=== PATIENT | female | born 1965 | race Hispanic/Latino ===

== ENCOUNTER 2017-02-16 11:38 | Emergency (ER) | payer SELFPAY ==
[2017-02-16 13:03] LABS: Basophils % (Auto) 0.5 % (0.0-1.8); Eosinophils % (Auto) 2.9 % (0.0-4.3); Hematocrit 35.3 % (30.3-42.9); Hemoglobin 10.9 gm/dl (10.1-14.3); Mean Corpuscular HGB Conc 31 % (30-34); Mean Corpuscular Hemoglobin 22 pg (28-32); Mean Corpuscular Volume 71 fl (79-97); Platelet Count 474 K/mm3 (140-440); White Blood Count 16.2 K/mm3 (4.5-11.0)
[2017-02-16 13:23] LABS: Anion Gap 19 mmol/L; BUN/Creatinine Ratio 15.71; Blood Urea Nitrogen 11 mg/dL (7-17); Calcium 8.9 mg/dL (8.4-10.2); Carbon Dioxide 22 mmol/L (22-30); Chloride 101.6 mmol/L (98-107); Glucose 100 mg/dL (65-100); Sodium 139 mmol/L (137-145)
[2017-02-16 13:28] LABS: Bacteria,Urine 1+ /HPF (Negative); Bilirubin,Urine NEG (Negative); Blood,Urine NEG (Negative); Ketones,Urine NEG (Negative); Leukocyte Esterase,Urine LG (Negative); Mucus,Urine FEW /HPF; Nitrite,Urine NEG (Negative); Protein,Urine <15 mg/dL mg/dL (Negative); Urobilinogen,Urine < 2.0 mg/dL (<2.0)
--- NOTE | 2017-02-16 14:52 | Emergency Department Report ---
ED Female HPI - General Chief complaint: Urogenital-Female Stated complaint: MENSTRUAL PROBLEMS Time Seen by Provider: 02/16/17 14:21 Source: patient Mode of arrival: Ambulatory Limitations: No Limitations - Related Data Previous Rx's Medication Instructions Recorded Last Taken Type HYDROcodone/APAP 10-325 [[place] 1 each PO Q6HR PRN #20 tablet 12/16/15 Unknown Rx 10-325 mg TAB] Allergies Allergy/AdvReac Type Severity Reaction Status Date / Time No Known Allergies Allergy Verified 02/16/17 12:39 ED Review of Systems ROS: Stated complaint: MENSTRUAL PROBLEMS Other details as noted in HPI ED Past Medical Hx - Past Medical History Hx Arthritis: Yes (PSORIATIC ARTHRITIS) Hx Asthma: Yes Additional medical history: PSORIASIS. - Surgical History Additional Surgical History: LEFT KNEE ARTHROSCOPY - Social History Smoking Status: Never Smoker Substance Use Type: Prescribed - Medications Home Medications: Home Medications Medication Instructions Recorded Confirmed Last Taken Type HYDROcodone/APAP 10-325 [[place] 1 each PO Q6HR PRN #20 tablet 12/16/15 Unknown Rx 10-325 mg TAB] ED Physical Exam - General Limitations: No Limitations ED Course Vital Signs 02/16/17 12:42 Temperature 98.0 F Pulse Rate 84 Respiratory 19 Rate Blood Pressure 139/94 O2 Sat by Pulse 100 Oximetry ED Medical Decision Making - Lab Data Result diagrams: 02/16/17 12:48 02/16/17 12:48 Critical care attestation.: If time is entered above; I have spent that time in minutes in the direct care of this critically ill patient, excluding procedure time. ED Disposition Condition: Stable Referrals: PRIMARY CARE, [Primary Care Provider] - 3-5 Days
[2017-02-16] MEDS ORDERED: ROCEPHIN IM ONE (16:07)
[2017-02-16] MEDS ORDERED: XYLOCAINE 1% MPF 5 mL INFILTRATI ONE (16:07)
[2017-02-16] MEDS ORDERED: ZITHROMAX PO ONE (16:07)
[2017-02-16] MEDS ORDERED: NORCO 5/325 PO ONE (16:20)
--- NOTE | 2017-02-16 16:24 | Emergency Department Report ---
Entered by JAMESON VEGA, acting as scribe for TEGAN DINH PA. ED Female HPI - General Chief complaint: Urogenital-Female Stated complaint: MENSTRUAL PROBLEMS Source: patient Mode of arrival: Ambulatory Limitations: No Limitations - History of Present Illness Initial comments: 51 y/o female with a PMHx of asthma, psoriatic arthritis, and psoriasis presents to the ED c/o a vaginal discharge and pelvic pain that began 2 weeks ago. Rates pelvic pain a 10/10 in severity and she describes the pain as pressure in quality. Patient states that she came on her period on 01/07/2017 , and on the last day she inserted a tampon. Patient states that she continued bleeding and left the tampon inside for 12 days straight, because she states she "couldn't get it out." Notes she removed the tampon 1.5 weeks ago, and bled for 2 days. Reports it "feels like my insides are coming out." Associated symptoms include purulent vaginal discharge with a foul odor and vaginal itching , but she denies fever, chills, vaginal bleeding, nausea, vomiting, and diarrhea. Notes applying Monistat for vaginal discharge and vaginal itching with some relief, but she states her symptoms returned. Denies having a period yet this month. NKDA. PALACIOS Complaint: vaginal discharge (purulent vaginal discharge with a foul odor), pelvic pain Onset/Timin -: week(s) Location: suprapubic (vaginal area) Radiation: non-radiating Severity: moderate Severity scale (0 -10): 10 Quality: other (pressure) Consistency: constant Improves with: none Worsens with: none Are you Now?: No Last Menstrual Period: 01/07/17 EDC: 10/14/17 Associated Symptoms: denies other symptoms, vaginal discharge (purulent vaginal discharge with a foul odor), other (vaginal itching and pelvic pain, but denies chest pain). denies: vaginal bleeding, abdominal pain, nausea/vomiting, fever/ chills, headaches, dysuria, hematuria, rash, shortness of breath - Related Data Previous Rx's Medication Instructions Recorded Last Taken Type HYDROcodone/APAP 10-325 [[place] 1 each PO Q6HR PRN #20 tablet 12/16/15 Unknown Rx 10-325 mg TAB] metroNIDAZOLE [Flagyl] 500 mg PO Q12HR #14 tab 02/16/17 Unknown Rx Allergies Allergy/AdvReac Type Severity Reaction Status Date / Time No Known Allergies Allergy Verified 02/16/17 12:39 ED Review of Systems Comment: All other systems reviewed and negative Constitutional: no symptoms reported. denies: chills, fever Respiratory: no symptoms reported. denies: cough, shortness of breath Cardiovascular: as per HPI. denies: chest pain Endocrine: no symptoms reported Gastrointestinal: as per HPI. denies: abdominal pain, nausea, vomiting, diarrhea Genitourinary: as per HPI, discharge (pururlent vaginal discharge with a foul odor), other (vaginal itching and pelvic pain, but denies vaginal bleeding). denies: urgency, dysuria, frequency, hematuria Musculoskeletal: as per HPI Skin: as per HPI. denies: rash Neurological: as per HPI. denies: headache ED Past Medical Hx - Past Medical History Hx Arthritis: Yes (PSORIATIC ARTHRITIS) Hx Asthma: Yes Additional medical history: PSORIASIS. - Surgical History Additional Surgical History: LEFT KNEE ARTHROSCOPY - Social History Smoking Status: Never Smoker Substance Use Type: Prescribed - Medications Home Medications: Home Medications Medication Instructions Recorded Confirmed Last Taken Type HYDROcodone/APAP 10-325 [[place] 1 each PO Q6HR PRN #20 tablet 12/16/15 Unknown Rx 10-325 mg TAB] metroNIDAZOLE [Flagyl] 500 mg PO Q12HR #14 tab 02/16/17 Unknown Rx ED Physical Exam - General Limitations: No Limitations General appearance: alert, in no apparent distress - Head Head exam: Present: atraumatic, normocephalic - Eye Eye exam: Present: normal appearance, EOMI Pupils: Present: normal accommodation - ENT ENT exam: Present: normal exam, mucous membranes moist - Neck Neck exam: Present: normal inspection, full ROM. Absent: lymphadenopathy - Respiratory Respiratory exam: Present: normal lung sounds bilaterally. Absent: respiratory distress, wheezes, rales, rhonchi - Cardiovascular Cardiovascular Exam: Present: regular rate, normal rhythm. Absent: systolic murmur, diastolic murmur, rubs, gallop - GI/Abdominal GI/Abdominal exam: Present: soft, normal bowel sounds. Absent: distended, tenderness, guarding, rebound, rigid - External exam: Present: erythema (erythematous labia), swelling (edematous labia ). Absent: normal external exam (female folded cloth taper present during the exam), lesions, lacerations, ecchymosis, bleeding Speculum exam: Present: erythema, vaginal discharge (greenish-yellow vaginal discharge), cervical discharge (friable cervix that bled upon touch with discharge), vaginal bleeding (minimal), other (minimal bleeding). Absent: normal speculum exam (female folded cloth taper present during the exam), foreign body, laceration Bi-manual exam: Present: cervical motion tendernes. Absent: normal bi-manual exam (female folded cloth taper present during the exam), adnexal tenderness, adnexal mass, uterine enlargement, uterine tenderness - Expanded Exam Expanded Female exam: Absent: vaginal laceration, tissue present in vagina, vulvar erythema, vulvar tenderness, foreign body Amniotic fluid: Present: none Speculum exam: Present: cervical OS closed, vaginal bleeding (minimal vaginal bleeding), vaginal discharge (greenish-yellow vaginal discharge) - Extremities Exam Extremities exam: Present: normal inspection, full ROM - Back Exam Back exam: Present: normal inspection, full ROM - Neurological Exam Neurological exam: Present: alert, oriented X3 - Psychiatric Psychiatric exam: Present: normal affect, normal mood - Skin Skin exam: Present: warm, dry, intact. Absent: rash ED Course Vital Signs 02/16/17 12:42 Temperature 98.0 F Pulse Rate 84 Respiratory 19 Rate Blood Pressure 139/94 O2 Sat by Pulse 100 Oximetry ED Medical Decision Making - Lab Data Result diagrams: 02/16/17 12:48 02/16/17 12:48 - Medical Decision Making Patient was evaluated in fast track area of ED by this provider. Patient presented with vaginal discharge with a foul odor and pelvic pain for 2 weeks. Lab work will be done on the patient. In the ED, she will be given Zithromax and Rocephin. Patient is in no acute distress at this time and she will be discharged home. Patient instructed to follow up with an [employer] if symptoms persist. Patient verbalized understanding. She is encouraged to return to the emergency room for any worsening symptoms. ED Disposition Clinical Impression: Vaginitis, Exposure to trichomonas Disposition: DISCHARGED TO HOME OR SELFCARE Is pt being admited?: No Does the pt Need Aspirin: No Condition: Stable Instructions: Cervicitis (ED), Sexually Transmitted Diseases (ED), Safe Sex (ED ), Trichomoniasis (ED) Additional Instructions: Take antibiotics as prescribed. Do not drink or consume any alcoholic beverage lowering your treatment and up to 72 hours after. He can follow up at medical records to obtain the results from the gonorrhea and chlamydia tests. Prescriptions: metroNIDAZOLE [Flagyl] 500 mg PO Q12HR #14 tab Referrals: PRIMARY CARE, [Primary Care Provider] - 3-5 Days Forms: Work/School Release Form(ED) This documentation as recorded by the GARY byrd SHALANE,accurately reflects the service I personally performed and the decisions made by me,TEGAN DINH PA.
[2017-02-16 16:33] VITALS: BP 134/78
== END 2017-02-16 16:31 | disposition home or self-care (01) ==
LOC: ED 11:38
DX: N76.0 Acute vaginitis (principal); Z20.828 Contact with and (suspected) exposure to other viral communicable diseases; J45.909 Unspecified asthma, uncomplicated
CPT/HCPCS: 36415; 80048; 81001; 82140; 84703; 85025; 87040; 87210; 96372; 99284; J0696; 87591

== ENCOUNTER 2017-03-14 11:47 | Emergency (ER) | payer SELFPAY ==
[2017-03-14 12:00] VITALS: BP 176/94
[2017-03-14] MEDS ORDERED: BENADRYL IM ONE (13:43)
--- NOTE | 2017-03-14 13:43 | Emergency Department Report ---
- General Chief complaint: Skin Rash Stated complaint: RASH Time Seen by Provider: 03/14/17 13:17 Source: patient Mode of arrival: Ambulatory Limitations: No Limitations - History of Present Illness Initial comments: 52-year-old female past medical history psoriasis, asthma p/w c/o rash to arms and legs x5-6 days. Pt at baseline states she has several psoriatic plaques on arms/legs on extensor surfaces. States she was gardening and developed itchy linear rashes on hands, forearms and knees. Pt states it is very itchy and has been scratching her arms and legs vigorously. Small excoriations on arms and legs along patches of irritated skin. Pt also states her asthma has been slightly exacerbated in the last few days. Ran out of albuterol inhaler, has been taking benadryl PO for itching with minimal relief. Denies any fever, chills, no nausea or vomiting. MD complaint: rash Onset/Timin -: days(s) Tetanus Up to Date: yes Location: LUE, RUE, RLE Severity: moderate Severity scale (0 -10): 5 Consistency: constant Associated symptoms: itching - Related Data Previous Rx's Medication Instructions Recorded Last Taken Type HYDROcodone/APAP 10-325 [[place] 1 each PO Q6HR PRN #20 tablet 12/16/15 Unknown Rx 10-325 mg TAB] metroNIDAZOLE [Flagyl] 500 mg PO Q12HR #14 tab 02/16/17 Unknown Rx ALBUTEROL Inhaler [ProAir HFA 2 puff IH QID PRN #1 inhalation 03/14/17 Unknown Rx Inhaler] Famotidine [Pepcid] 20 mg PO BID PRN #1 bottle 03/14/17 Unknown Rx Hydroxyzine HCl 25 mg PO BID PRN #25 tablet 03/14/17 Unknown Rx Permethrin 5% [Acticin 5% CREAM] 1 applicatio TP ONCE #1 tube 03/14/17 Unknown Rx Prednisone [predniSONE 10 mg 10 mg PO .TAPER #1 tab.ds.pk 03/14/17 Unknown Rx (6-Day Pack, 21 Tabs)] Allergies Allergy/AdvReac Type Severity Reaction Status Date / Time No Known Allergies Allergy Verified 02/16/17 12:39 Abscess Boil HPI - HPI Chief Complaint: Skin Rash Stated Complaint: RASH Time Seen by Provider: 03/14/17 13:17 Home Medications: Previous Rx's Medication Instructions Recorded Last Taken Type HYDROcodone/APAP 10-325 [[place] 1 each PO Q6HR PRN #20 tablet 12/16/15 Unknown Rx 10-325 mg TAB] metroNIDAZOLE [Flagyl] 500 mg PO Q12HR #14 tab 02/16/17 Unknown Rx ALBUTEROL Inhaler [ProAir HFA 2 puff IH QID PRN #1 inhalation 03/14/17 Unknown Rx Inhaler] Famotidine [Pepcid] 20 mg PO BID PRN #1 bottle 03/14/17 Unknown Rx Hydroxyzine HCl 25 mg PO BID PRN #25 tablet 03/14/17 Unknown Rx Permethrin 5% [Acticin 5% CREAM] 1 applicatio TP ONCE #1 tube 03/14/17 Unknown Rx Prednisone [predniSONE 10 mg 10 mg PO .TAPER #1 tab.ds.pk 03/14/17 Unknown Rx (6-Day Pack, 21 Tabs)] Allergies/Adverse Reactions: Allergies Allergy/AdvReac Type Severity Reaction Status Date / Time No Known Allergies Allergy Verified 02/16/17 12:39 ED Review of Systems ROS: Stated complaint: RASH Other details as noted in HPI Constitutional: denies: chills, fever Eyes: denies: eye pain, eye discharge, vision change ENT: denies: ear pain, throat pain Respiratory: denies: cough, shortness of breath, wheezing Cardiovascular: denies: chest pain, palpitations Endocrine: no symptoms reported Gastrointestinal: denies: abdominal pain, nausea, diarrhea Genitourinary: denies: urgency, dysuria, discharge Musculoskeletal: denies: back pain, joint swelling, arthralgia Skin: as per HPI (itching several days), pruritus. denies: rash, lesions Neurological: denies: headache, weakness, paresthesias Psychiatric: denies: anxiety, depression Hematological/Lymphatic: denies: easy bleeding, easy bruising ED Past Medical Hx - Past Medical History Previous Medical History?: Yes Hx Arthritis: Yes (PSORIATIC ARTHRITIS) Hx Asthma: Yes Additional medical history: PSORIASIS. - Surgical History Past Surgical History?: Yes Additional Surgical History: LEFT KNEE ARTHROSCOPY - Social History Smoking Status: Never Smoker Substance Use Type: None - Medications Home Medications: Home Medications Medication Instructions Recorded Confirmed Last Taken Type HYDROcodone/APAP 10-325 [[place] 1 each PO Q6HR PRN #20 tablet 12/16/15 Unknown Rx 10-325 mg TAB] metroNIDAZOLE [Flagyl] 500 mg PO Q12HR #14 tab 02/16/17 Unknown Rx ALBUTEROL Inhaler [ProAir HFA 2 puff IH QID PRN #1 inhalation 03/14/17 Unknown Rx Inhaler] Famotidine [Pepcid] 20 mg PO BID PRN #1 bottle 03/14/17 Unknown Rx Hydroxyzine HCl 25 mg PO BID PRN #25 tablet 03/14/17 Unknown Rx Permethrin 5% [Acticin 5% CREAM] 1 applicatio TP ONCE #1 tube 03/14/17 Unknown Rx Prednisone [predniSONE 10 mg 10 mg PO .TAPER #1 tab.ds.pk 03/14/17 Unknown Rx (6-Day Pack, 21 Tabs)] ED Physical Exam - General Limitations: No Limitations General appearance: alert, in no apparent distress - Head Head exam: Present: atraumatic, normocephalic - Eye Eye exam: Present: normal appearance, PERRL, EOMI - ENT ENT exam: Present: mucous membranes moist - Neck Neck exam: Present: normal inspection - Respiratory Respiratory exam: Present: respiratory distress, wheezes (mild wheezing on exam) - Cardiovascular Cardiovascular Exam: Present: regular rate, normal rhythm. Absent: systolic murmur, diastolic murmur, rubs, gallop - GI/Abdominal GI/Abdominal exam: Present: soft, normal bowel sounds - Extremities Exam Extremities exam: Present: normal inspection, full ROM - Back Exam Back exam: Present: normal inspection - Neurological Exam Neurological exam: Present: alert, oriented X3, CN II-XII intact, normal gait - Psychiatric Psychiatric exam: Present: normal affect, normal mood - Skin Skin exam: Present: warm, dry, intact, normal color, rash - Expanded Skin Exam Expanded Type of lesion: Present: rash Distribution of rash: RUE, LUE, RLE, LLE Description of rash: Present: blisters (small linear blisters suggestive of possible dermatitis, similar to poison sharon dermatitis), crusting (visible psoriatic lesions, small linear encrusted lesions reminiscent of either scabies or possibly of poison sharon dermatitis), other (patient has psoriatic plaques on elbows and knees) ED Course Vital Signs 03/14/17 03/14/17 03/14/17 11:56 14:01 15:36 Temperature 98.1 F Pulse Rate 89 Pulse Rate [ 70 Anterior Bilateral Throughout] Respiratory 18 18 Rate Respiratory 16 Rate [Anterior Bilateral Throughout] Blood Pressure 176/94 O2 Sat by Pulse 100 99 Oximetry 03/14/17 15:37 Temperature Pulse Rate Pulse Rate [ 72 Anterior Bilateral Throughout] Respiratory Rate Respiratory 18 Rate [Anterior Bilateral Throughout] Blood Pressure O2 Sat by Pulse Oximetry ED Medical Decision Making - Medical Decision Making A/P: Possible poison sharon versus scabies lesions on upper and lower extremities, asthma exacerbation 1-and given IM dose of Decadron, IM Benadryl, by mouth Pepcid 2-by mouth hydroxyzine, by mouth Pepcid, short course prednisone, albuterol inhaler 3-patient referred to dermatology 4-permethrin topical as patient may have scabies exposure, calamine lotion topically 5- I repeated pts vital signs before discharge VS: BP 153/86, o2Sat 99% on RA, HR 97, T 99.0F Oral, RR18 Critical care attestation.: If time is entered above; I have spent that time in minutes in the direct care of this critically ill patient, excluding procedure time. ED Disposition Clinical Impression: Poison sharon dermatitis Disposition: DC- TO HOME OR SELFCARE Is pt being admited?: No Does the pt Need Aspirin: No Condition: Stable Instructions: Poison Sharon (ED), Scabies (ED) Prescriptions: ALBUTEROL Inhaler [ProAir HFA Inhaler] 2 puff IH QID PRN #1 inhalation PRN Reason: Shortness Of Breath Famotidine [Pepcid] 20 mg PO BID PRN #1 bottle PRN Reason: Itching Hydroxyzine HCl 25 mg PO BID PRN #25 tablet PRN Reason: Itching Permethrin 5% [Acticin 5% CREAM] 1 applicatio TP ONCE #1 tube Prednisone [predniSONE 10 mg (6-Day Pack, 21 Tabs)] 10 mg PO .TAPER #1 tab.ds.pk Referrals: ETHEL ARIAS MD [Staff Physician] - 3-5 Days [facility] [Provider Group] - 3-5 Days [facility] [Provider Group] - 3-5 Days [facility] [Provider Group] - 3-5 Days Time of Disposition: 15:29
[2017-03-14] MEDS ORDERED: DECADRON IM ONE (13:44)
[2017-03-14] MEDS ORDERED: PEPCID PO ONE (13:44)
[2017-03-14] MEDS ORDERED: PROVENTIL IH ONE (15:24)
[2017-03-14] MEDS ORDERED: DUONEB 0.5 MG-3 MG/3 ML SOLN IH ONE (15:24)
== END 2017-03-14 16:00 | disposition home or self-care (01) ==
LOC: ED 11:47
DX: L23.7 Allergic contact dermatitis due to plants, except food (principal); M19.90 Unspecified osteoarthritis, unspecified site; J45.909 Unspecified asthma, uncomplicated
CPT/HCPCS: 94640; 96372; 99283; J1100; J1200

== ENCOUNTER 2018-06-25 20:19 | Emergency (ER) | payer SELFPAY ==
[2018-06-25 20:47] VITALS: BP 147/94
[2018-06-25] MEDS ORDERED: MOTRIN PO ONE (22:11)
--- NOTE | 2018-06-25 22:17 | Emergency Department Report ---
ED ENT HPI - General Chief complaint: Dental/Oral Stated complaint: TOOTHACH Time Seen by Provider: 06/25/18 21:51 Source: patient Mode of arrival: Ambulatory Limitations: No Limitations - History of Present Illness Initial comments: This is a 53-year-old female nontoxic, well nourished in appearance, no acute signs of distress presents to the ED with c/o of left upper toothache 3 weeks. Patient denies following up with a dentist and stated has a appointment in 10 days. Patient stated that pain radiates from his job to his left side of head. Patient otherwise denies any head trauma. Patient describes toothache as aching level of 8 out of 10. Patient denies any facial swelling. Patient denies any numbness, tingling, fever, chills, headache, stiff neck, abdominal pain, chest pain, shortness of breath. Patient denies any drug allergies. MD complaint: tooth pain -: week(s) (3) Location: tooth # 1 - pain here Quality: aching Consistency: constant Improves with: none Worsens with: none Context- Dental: history of dental caries, poor dental care Associated Symptoms: gum swelling, toothache. denies: fever, cough, pain with swallowing, sore throat, tinnitus, hearing loss, discharge from ear, rhinorrhea - Related Data Previous Rx's Medication Instructions Recorded Last Taken Type HYDROcodone/APAP 10-325 [[place] 1 each PO Q6HR PRN #20 tablet 12/16/15 Unknown Rx 10-325 mg TAB] metroNIDAZOLE [Flagyl] 500 mg PO Q12HR #14 tab 02/16/17 Unknown Rx ALBUTEROL Inhaler (OR & NICU) 2 puff IH QID PRN #1 inhalation 03/14/17 Unknown Rx [ProAir HFA Inhaler] Famotidine [Pepcid] 20 mg PO BID PRN #1 bottle 03/14/17 Unknown Rx Permethrin 5% [Acticin 5% CREAM] 1 applicatio TP ONCE #1 tube 03/14/17 Unknown Rx Prednisone [predniSONE 10 mg 10 mg PO .TAPER #1 tab.ds.pk 03/14/17 Unknown Rx (6-Day Pack, 21 Tabs)] hydrOXYzine HCl [Hydroxyzine HCl] 25 mg PO BID PRN #25 tablet 03/14/17 Unknown Rx Acetaminophen/Codeine [Tylenol 1 tab PO Q6H PRN #12 tab 06/25/18 Unknown Rx /Codeine # 3 tab] Amoxicillin/K Clav Tab [Augmentin 1 tab PO Q12HR #20 tab 06/25/18 Unknown Rx 875 mg] Ibuprofen [Motrin] 600 mg PO Q8H PRN #30 tablet 06/25/18 Unknown Rx Allergies Allergy/AdvReac Type Severity Reaction Status Date / Time No Known Allergies Allergy Verified 02/16/17 12:39 ED Dental HPI - General Chief complaint: Dental/Oral Stated complaint: TOOTHACH Time Seen by Provider: 06/25/18 21:51 Source: patient Mode of arrival: Ambulatory Limitations: No Limitations - Related Data Previous Rx's Medication Instructions Recorded Last Taken Type HYDROcodone/APAP 10-325 [[place] 1 each PO Q6HR PRN #20 tablet 12/16/15 Unknown Rx 10-325 mg TAB] metroNIDAZOLE [Flagyl] 500 mg PO Q12HR #14 tab 02/16/17 Unknown Rx ALBUTEROL Inhaler (OR & NICU) 2 puff IH QID PRN #1 inhalation 03/14/17 Unknown Rx [ProAir HFA Inhaler] Famotidine [Pepcid] 20 mg PO BID PRN #1 bottle 03/14/17 Unknown Rx Permethrin 5% [Acticin 5% CREAM] 1 applicatio TP ONCE #1 tube 03/14/17 Unknown Rx Prednisone [predniSONE 10 mg 10 mg PO .TAPER #1 tab.ds.pk 03/14/17 Unknown Rx (6-Day Pack, 21 Tabs)] hydrOXYzine HCl [Hydroxyzine HCl] 25 mg PO BID PRN #25 tablet 03/14/17 Unknown Rx Acetaminophen/Codeine [Tylenol 1 tab PO Q6H PRN #12 tab 06/25/18 Unknown Rx /Codeine # 3 tab] Amoxicillin/K Clav Tab [Augmentin 1 tab PO Q12HR #20 tab 06/25/18 Unknown Rx 875 mg] Ibuprofen [Motrin] 600 mg PO Q8H PRN #30 tablet 06/25/18 Unknown Rx Allergies Allergy/AdvReac Type Severity Reaction Status Date / Time No Known Allergies Allergy Verified 02/16/17 12:39 ED Review of Systems ROS: Stated complaint: TOOTHACH Other details as noted in HPI Constitutional: denies: chills, fever Eyes: denies: eye pain, eye discharge, vision change ENT: dental pain. denies: ear pain, throat pain Respiratory: denies: cough, shortness of breath, wheezing Cardiovascular: denies: chest pain, palpitations Endocrine: no symptoms reported Gastrointestinal: denies: abdominal pain, nausea, diarrhea Genitourinary: denies: urgency, dysuria, discharge Musculoskeletal: denies: back pain, joint swelling, arthralgia Skin: denies: rash, lesions Neurological: denies: headache, weakness, paresthesias Psychiatric: denies: anxiety, depression Hematological/Lymphatic: denies: easy bleeding, easy bruising ED Past Medical Hx - Past Medical History Hx Arthritis: Yes (PSORIATIC ARTHRITIS) Hx Asthma: Yes Additional medical history: PSORIASIS. - Surgical History Additional Surgical History: LEFT KNEE ARTHROSCOPY - Social History Smoking Status: Never Smoker Substance Use Type: Alcohol - Medications Home Medications: Home Medications Medication Instructions Recorded Confirmed Last Taken Type HYDROcodone/APAP 10-325 [[place] 1 each PO Q6HR PRN #20 tablet 12/16/15 Unknown Rx 10-325 mg TAB] metroNIDAZOLE [Flagyl] 500 mg PO Q12HR #14 tab 02/16/17 Unknown Rx ALBUTEROL Inhaler (OR & NICU) 2 puff IH QID PRN #1 inhalation 03/14/17 Unknown Rx [ProAir HFA Inhaler] Famotidine [Pepcid] 20 mg PO BID PRN #1 bottle 03/14/17 Unknown Rx Permethrin 5% [Acticin 5% CREAM] 1 applicatio TP ONCE #1 tube 03/14/17 Unknown Rx Prednisone [predniSONE 10 mg 10 mg PO .TAPER #1 tab.ds.pk 03/14/17 Unknown Rx (6-Day Pack, 21 Tabs)] hydrOXYzine HCl [Hydroxyzine HCl] 25 mg PO BID PRN #25 tablet 03/14/17 Unknown Rx Acetaminophen/Codeine [Tylenol 1 tab PO Q6H PRN #12 tab 06/25/18 Unknown Rx /Codeine # 3 tab] Amoxicillin/K Clav Tab [Augmentin 1 tab PO Q12HR #20 tab 06/25/18 Unknown Rx 875 mg] Ibuprofen [Motrin] 600 mg PO Q8H PRN #30 tablet 06/25/18 Unknown Rx ED Physical Exam - General Limitations: No Limitations General appearance: alert, in no apparent distress - Head Head exam: Present: atraumatic, normocephalic - Eye Eye exam: Present: normal appearance Pupils: Present: normal accommodation - ENT ENT exam: Present: mucous membranes moist - Expanded ENT Exam Expanded Ear exam: Present: normal external inspection Mouth exam: Present: normal external inspection, tongue normal. Absent: drooling, trismus, muffled voice, tongue elevation, laceration Teeth exam: Present: dental caries, fractured tooth #, dental tenderness #, gingival enlargement, other (no facial swelling.) Throat exam: Positive: normal inspection, other (Uvula midline. ). Negative: tonsillar erythema, tonsillomegaly, tonsillar exudate, R peritonsillar mass, L peritonsillar mass - Neck Neck exam: Present: normal inspection, full ROM. Absent: tenderness, meningismus, lymphadenopathy - Respiratory Respiratory exam: Present: normal lung sounds bilaterally. Absent: respiratory distress, wheezes, rales, rhonchi, stridor, chest wall tenderness, accessory muscle use, decreased breath sounds, prolonged expiratory - Cardiovascular Cardiovascular Exam: Present: regular rate, normal rhythm, normal heart sounds. Absent: bradycardia, tachycardia, irregular rhythm, systolic murmur, diastolic murmur, rubs, gallop - GI/Abdominal GI/Abdominal exam: Present: soft, normal bowel sounds - Extremities Exam Extremities exam: Present: normal inspection, full ROM, normal capillary refill - Back Exam Back exam: Present: normal inspection, full ROM - Neurological Exam Neurological exam: Present: alert, oriented X3, normal gait - Psychiatric Psychiatric exam: Present: normal affect, normal mood - Skin Skin exam: Present: warm, dry, intact, normal color. Absent: rash ED Course Vital Signs 06/25/18 20:43 Temperature 98.7 F Pulse Rate 67 Respiratory 20 Rate Blood Pressure 147/94 O2 Sat by Pulse 99 Oximetry - Reevaluation(s) Reevaluation #1: 06/25/18 22:14 Patient is speaking in full sentences with no signs of distress noted. Critical care attestation.: If time is entered above; I have spent that time in minutes in the direct care of this critically ill patient, excluding procedure time. ED Disposition Clinical Impression: Dental caries, Gingivitis Disposition: - TO HOME OR SELFCARE Is pt being admited?: No Does the pt Need Aspirin: No Condition: Stable Instructions: Dental Caries (ED), Gingivitis (ED), Acetaminophen/Codeine (By mouth) Additional Instructions: Follow-up with a dentist doctor in 3-5 days or if symptoms worsen and continue return to emergency room as soon as possible. 3 Do not operate any machinery while taking Tylenol with codeine as this may cause drowsiness. Prescriptions: Acetaminophen/Codeine [Tylenol /Codeine # 3 tab] 1 tab PO Q6H PRN #12 tab PRN Reason: Pain , Severe (7-10) Amoxicillin/K Clav Tab [Augmentin 875 mg] 1 tab PO Q12HR #20 tab Ibuprofen [Motrin] 600 mg PO Q8H PRN #30 tablet PRN Reason: Pain Referrals: PRIMARY CAREMD [Referring] - 3-5 Days ANIYA AVILES MD [Staff Physician] - 3-5 Days [facility] [Outside] - 3-5 Days Forms: Work/School Release Form(ED)
== END 2018-06-25 22:58 | disposition home or self-care (01) ==
LOC: ED 20:19
DX: K02.9 Dental caries, unspecified (principal); K05.00 Acute gingivitis, plaque induced; J45.909 Unspecified asthma, uncomplicated; L40.50 Arthropathic psoriasis, unspecified; Z79.899 Other long term (current) drug therapy
CPT/HCPCS: 99282

== ENCOUNTER 2019-04-30 21:22 | Emergency (ER) | payer SELFPAY ==
[2019-04-30] MEDS ORDERED: MORPHINE IV ONE (21:43)
[2019-04-30] MEDS ORDERED: ZOFRAN IV ONE (21:43)
[2019-04-30 21:47] VITALS: BP 142/103
--- NOTE | 2019-04-30 21:48 | Emergency Department Report ---
ED Fall HPI - General Chief Complaint: Fall Stated Complaint: LEFT SIDE LEG/BACK PAIN Time Seen by Provider: 04/30/19 21:42 Source: patient, family Mode of arrival: Wheelchair - History of Present Illness Initial Comments: Patient is 54 years old female with history of psoriasis. Patient presented to the ER complaining of pain to the left chest, left hip, left knee, left ankle and lower back after she sustained a fall from 8 feet. Patient denied any head injury or loss of consciousness. Patient stated that she was doing pressure washing when this happened and she lost balance. MD Complaint: fall Fall From: from height (distance) (8 feet) When Fall Occurred: just prior to arrival Fall Witnessed: yes, by family Place Fall Occurred: home Loss of Consciousness: none Prolonged Down Time?: no Symptoms Prior to Fall: none Location: chest, back Location - Extremities: Left: Knee, Leg, Ankle Severity: severe Severity scale (0 -10): 9 Context: tripped/slipped Associated Symptoms: denies - Related Data Previous Rx's Medication Instructions Recorded Last Taken Type HYDROcodone/APAP 10-325 [[place] 1 each PO Q6HR PRN #20 tablet 12/16/15 Unknown Rx 10-325 mg TAB] metroNIDAZOLE [Flagyl] 500 mg PO Q12HR #14 tab 02/16/17 Unknown Rx ALBUTEROL Inhaler (OR & NICU) 2 puff IH QID PRN #1 inhalation 03/14/17 Unknown Rx [ProAir HFA Inhaler] Famotidine [Pepcid] 20 mg PO BID PRN #1 bottle 03/14/17 Unknown Rx Permethrin 5% [Acticin 5% CREAM] 1 applicatio TP ONCE #1 tube 03/14/17 Unknown Rx Prednisone [predniSONE 10 mg 10 mg PO .TAPER #1 tab.ds.pk 03/14/17 Unknown Rx (6-Day Pack, 21 Tabs)] hydrOXYzine HCl [Hydroxyzine HCl] 25 mg PO BID PRN #25 tablet 03/14/17 Unknown Rx Acetaminophen/Codeine [Tylenol 1 tab PO Q6H PRN #12 tab 06/25/18 Unknown Rx /Codeine # 3 tab] Amoxicillin/K Clav Tab [Augmentin 1 tab PO Q12HR #20 tab 06/25/18 Unknown Rx 875 mg] Ibuprofen [Motrin] 600 mg PO Q8H PRN #30 tablet 06/25/18 Unknown Rx Amoxicillin 500 mg PO TID #30 capsule 11/03/18 Unknown Rx Chlorhexidine Mouthwash [Peridex] 15 ml MM BID #1 bottle 11/03/18 Unknown Rx Menthol/Camphor [[place] 1 applicatio TP QID PRN #1 tube 11/03/18 Unknown Rx Ointment] Naproxen 500 mg PO BID PRN #30 tablet 11/03/18 Unknown Rx Allergies Allergy/AdvReac Type Severity Reaction Status Date / Time No Known Allergies Allergy Verified 02/16/17 12:39 ED Review of Systems ROS: Stated complaint: LEFT SIDE LEG/BACK PAIN Other details as noted in HPI Comment: All other systems reviewed and negative Constitutional: denies: chills, fever Respiratory: denies: cough Cardiovascular: denies: chest pain Gastrointestinal: denies: abdominal pain Musculoskeletal: back pain Neurological: denies: headache, weakness ED Past Medical Hx - Past Medical History Previous Medical History?: Yes Hx Arthritis: Yes (PSORIATIC ARTHRITIS) Hx Asthma: Yes Additional medical history: PSORIASIS. - Surgical History Past Surgical History?: Yes Additional Surgical History: LEFT KNEE ARTHROSCOPY - Social History Smoking Status: Never Smoker Substance Use Type: Alcohol - Medications Home Medications: Home Medications Medication Instructions Recorded Confirmed Last Taken Type HYDROcodone/APAP 10-325 [[place] 1 each PO Q6HR PRN #20 tablet 12/16/15 Unknown Rx 10-325 mg TAB] metroNIDAZOLE [Flagyl] 500 mg PO Q12HR #14 tab 02/16/17 Unknown Rx ALBUTEROL Inhaler (OR & NICU) 2 puff IH QID PRN #1 inhalation 03/14/17 Unknown Rx [ProAir HFA Inhaler] Famotidine [Pepcid] 20 mg PO BID PRN #1 bottle 03/14/17 Unknown Rx Permethrin 5% [Acticin 5% CREAM] 1 applicatio TP ONCE #1 tube 03/14/17 Unknown Rx Prednisone [predniSONE 10 mg 10 mg PO .TAPER #1 tab.ds.pk 03/14/17 Unknown Rx (6-Day Pack, 21 Tabs)] hydrOXYzine HCl [Hydroxyzine HCl] 25 mg PO BID PRN #25 tablet 03/14/17 Unknown Rx Acetaminophen/Codeine [Tylenol 1 tab PO Q6H PRN #12 tab 06/25/18 Unknown Rx /Codeine # 3 tab] Amoxicillin/K Clav Tab [Augmentin 1 tab PO Q12HR #20 tab 06/25/18 Unknown Rx 875 mg] Ibuprofen [Motrin] 600 mg PO Q8H PRN #30 tablet 06/25/18 Unknown Rx Amoxicillin 500 mg PO TID #30 capsule 11/03/18 Unknown Rx Chlorhexidine Mouthwash [Peridex] 15 ml MM BID #1 bottle 11/03/18 Unknown Rx Menthol/Camphor [[place] 1 applicatio TP QID PRN #1 tube 11/03/18 Unknown Rx Ointment] Naproxen 500 mg PO BID PRN #30 tablet 11/03/18 Unknown Rx ED Physical Exam - General Limitations: No Limitations General appearance: alert, in no apparent distress - Head Head exam: Present: atraumatic, normocephalic, normal inspection - Eye Eye exam: Present: normal appearance - ENT ENT exam: Present: normal exam, normal orophraynx, mucous membranes moist - Neck Neck exam: Present: normal inspection, full ROM. Absent: tenderness, meningismus, lymphadenopathy, thyromegaly - Respiratory Respiratory exam: Present: chest wall tenderness (left chest) - Cardiovascular Cardiovascular Exam: Present: regular rate, normal rhythm, normal heart sounds - GI/Abdominal GI/Abdominal exam: Present: soft, normal bowel sounds. Absent: distended, tenderness, guarding, rebound, rigid, mass, bruit, pulsatile mass, hernia - Extremities Exam Extremities exam: Present: normal inspection, normal capillary refill - Expanded Lower Extremity Exam Left Hip exam: Present: tenderness Upper Leg exam: Present: normal inspection, full ROM Knee exam: Present: normal inspection, full ROM, tenderness Lower Leg exam: Present: normal inspection, full ROM, tenderness Ankle exam: Present: normal inspection, full ROM, tenderness. Absent: swelling Foot/Toe exam: Present: normal inspection, full ROM. Absent: tenderness, swelling, abrasion, laceration Neuro vascular tendon exam: Present: no vascular compromise - Back Exam Back exam: Present: normal inspection, full ROM. Absent: tenderness, CVA tenderness (R) ED Course Vital Signs 04/30/19 04/30/19 04/30/19 21:31 21:42 21:45 Temperature 98.0 F Pulse Rate 85 137 H 96 H Respiratory 18 17 11 L Rate Blood Pressure 111/87 142/103 O2 Sat by Pulse 100 94 100 Oximetry 04/30/19 21:47 Temperature Pulse Rate Respiratory 20 Rate Blood Pressure O2 Sat by Pulse Oximetry ED Medical Decision Making - Radiology Data Radiology results: report reviewed - Medical Decision Making Patient is 54 years old female with history of psoriasis. Patient presented to the ER complaining of pain to the left chest, left hip, left knee, left ankle and lower back after she sustained a fall from 8 feet. Patient denied any head injury or loss of consciousness. Patient stated that she was doing pressure washing when this happened and she lost balance. X-ray of the chest with left rib details, lumbar spine, left hip, left knee and left ankle are all negative for acute finding. Patient received morphine for pain and stated that she is feeling much better. Patient advised to follow-up with primary care physician in the next 2-3 days and to return to the ER if symptoms are not improved. Critical care attestation.: If time is entered above; I have spent that time in minutes in the direct care of this critically ill patient, excluding procedure time. ED Disposition Clinical Impression: Fall, Multiple contusions Disposition: DC-01 TO HOME OR SELFCARE Is pt being admited?: No Condition: Stable Instructions: Fall Prevention (ED), Contusion in Adults (ED) Referrals: JG NUR MD [Primary Care Provider] - 3-5 Days
--- NOTE | 2019-04-30 23:04 | XRay Report ---
LEFT KNEE 3 VIEW(S) INDICATION / CLINICAL INFORMATION: Fall from ladder landing on left side , left leg pain COMPARISON: None available. FINDINGS: BONES / JOINT(S): No acute fracture or subluxation. Advanced osteoarthritis with osteophytes in all 3 compartments. SOFT TISSUES: No significant abnormality. ADDITIONAL FINDINGS: None. Signer Name: Franko Orlando MD Signed: 04/30/2019 11:00 PM Workstation Name: [id number]
--- NOTE | 2019-04-30 23:06 | XRay Report ---
LUMBAR SPINE 3 VIEWS INDICATION / CLINICAL INFORMATION: BACK INJURY. COMPARISON: None available. FINDINGS: VERTEBRAE: No acute fracture. No significant malalignment. DISC SPACES / FACET JOINTS:Multilevel anterior osteophytes. Mild to moderate disc space narrowing mos t severe at L2-L3. Facet arthrosis greater in the lower lumbar levels. PARASPINAL SOFT TISSUES:No significant abnormality. ADDITIONAL FINDINGS: None. Signer Name: Franko Orlando MD Signed: 04/30/2019 11:01 PM Workstation Name: [id number]
--- NOTE | 2019-04-30 23:07 | XRay Report ---
LEFT RIBS 5 VIEWS INDICATION / CLINICAL INFORMATION: Fall from ladder. COMPARISON: None available. FINDINGS: 5 views of the left sided ribs including AP chest radiograph RIBS: No acute, displaced fracture or other acute abnormality. LUNGS: No acute findings. No pneumothorax. Signer Name: Franko Orlando MD Signed: 04/30/2019 11:03 PM Workstation Name: [id number]
--- NOTE | 2019-04-30 23:10 | XRay Report ---
LEFT HIP 3 VIEW(S) INDICATION / CLINICAL INFORMATION: fall COMPARISON: Contemporaneous lumbar spine radiographs FINDINGS: 2 frontal projection images of the pelvis and a frog-leg lateral view of the left hip BONES / JOINT(S): No acute fracture or subluxation. Mild, symmetric bilateral hip osteoarthrosis. Mil d degenerative changes of the pubic symphysis. SOFT TISSUES: No significant abnormality. ADDITIONAL FINDINGS: None. Signer Name: Franko Orlando MD Signed: 04/30/2019 11:05 PM Workstation Name: [id number]
--- NOTE | 2019-04-30 23:11 | XRay Report ---
LEFT ANKLE 3 VIEW(S) INDICATION / CLINICAL INFORMATION: Fall from ladder with left leg pain COMPARISON: None available. FINDINGS: BONES / JOINT(S): No acute fracture or subluxation. Moderate degenerative changes of the midfoot join ts. Plantar calcaneal and Achilles enthesophytes are noted. SOFT TISSUES: No ankle effusion or soft tissue swelling. ADDITIONAL FINDINGS: None. Signer Name: Franko Orlando MD Signed: 04/30/2019 11:07 PM Workstation Name: [id number]
[2019-05-01] MEDS ORDERED: TORADOL IV ONE
== END 2019-05-01 00:11 | disposition home or self-care (01) ==
LOC: ED 21:22
DX: S20.212A Contusion of left front wall of thorax, initial encounter (principal); S70.02XA Contusion of left hip, initial encounter; S80.02XA Contusion of left knee, initial encounter; S90.02XA Contusion of left ankle, initial encounter; S30.0XXA Contusion of lower back and pelvis, initial encounter; M19.90 Unspecified osteoarthritis, unspecified site; J45.909 Unspecified asthma, uncomplicated; L40.9 Psoriasis, unspecified; Z98.890 Other specified postprocedural states; Z79.899 Other long term (current) drug therapy; W17.89XA Other fall from one level to another, initial encounter; Y93.89 Activity, other specified; Y92.89 Other specified places as the place of occurrence of the external cause; Y99.8 Other external cause status
CPT/HCPCS: 71101; 72100; 73502; 73562; 73610; 96374; 96375; 99283; J1885; J2270; J2405

== ENCOUNTER 2020-01-09 16:46 | Inpatient (IN) | payer OTHER ==
[2020-01-09 17:32] LABS: Bilirubin,Urine NEG (Negative); Blood,Urine NEG (Negative); Color,Urine Yellow (Yellow); Mucus,Urine FEW /HPF; Urobilinogen,Urine < 2.0 mg/dL (<2.0)
[2020-01-09 18:07] LABS: Basophils # (Auto) 0.1 K/mm3 (0.0-0.1); Basophils % (Auto) 1.1 % (0.0-1.8); Eosinophils # (Auto) 0.2 K/mm3 (0.0-0.4); Eosinophils % (Auto) 2.8 % (0.0-4.3); Hematocrit 30.1 % (30.3-42.9); Hemoglobin 9.2 gm/dl (10.1-14.3); Lymphocytes # (Auto) 1.5 K/mm3 (1.2-5.4); Lymphocytes % (Auto) 23.5 % (13.4-35.0); Mean Corpuscular HGB Conc 31 % (30-34); Monocytes # (Auto) 0.6 K/mm3 (0.0-0.8); Monocytes % (Auto) 8.8 % (0.0-7.3); Platelet Count 374 K/mm3 (140-440); Red Blood Count 4.49 M/mm3 (3.65-5.03); Red Cell Distribution Width 19.3 % (13.2-15.2)
[2020-01-09 18:08] LABS: Mean Corpuscular Volume 67 fl (79-97)
[2020-01-09] MEDS ORDERED: ONDANSETRON 4 MG/2 ML INJ IV ONE (18:16)
[2020-01-09] MEDS ORDERED: MORPHINE 4 MG/1 ML INJ IV ONE (18:16)
[2020-01-09] MEDS ORDERED: SODIUM CHLORIDE 0.9% 1000 ML 1,000 ML IV ONE (18:16)
[2020-01-09 18:30] LABS: Alanine Aminotransferase 38 units/L (7-56); Albumin 3.5 g/dL (3.9-5); BUN/Creatinine Ratio 21; Blood Urea Nitrogen 15 mg/dL (7-17); Calcium 8.2 mg/dL (8.4-10.2); Hemolysis Index 8
--- NOTE | 2020-01-09 19:24 | Cat Scan Report ---
CT ABDOMEN AND PELVIS WITH CONTRAST INDICATION / CLINICAL INFORMATION: MAIN: epigastric abd pain 100cc of omnipaque 300 . TECHNIQUE: Axial CT images were obtained through the abdomen and pelvis after 100 cc Omnipaque 300 milligrams pe rcent IV contrast. All CT scans at this location are performed using CT dose reduction for ALARA by means of automated exposure control. COMPARISON: None available. FINDINGS: LOWER CHEST: Residual markings are prominent. Bilateral pleural effusions are present. LIVER: No significant abnormality. GALLBLADDER: However, attention is directed to the gallbladder which contains multiple calculi. There is slight enhancement gallbladder wall and pericholecystic fluid.. BILE DUCTS: No significant abnormality. PANCREAS: No significant abnormality. SPLEEN: No significant abnormality. ADRENALS: No significant abnormality. RIGHT KIDNEY and URETER: No significant abnormality. LEFT KIDNEY and URETER: No significant abnormality. STOMACH and SMALL BOWEL: No significant abnormality. COLON: No significant abnormality. APPENDIX: No significant abnormality. PERITONEUM: No free fluid. No free air. No fluid collection. LYMPH NODES: No significant adenopathy. AORTA and ARTERIES: No significant abnormality. IVC and VEINS: No significant abnormality. URINARY BLADDER: No significant abnormality. REPRODUCTIVE ORGANS: No significant abnormality. Small amount of free fluid is present in the cul-de- sac. ADDITIONAL FINDINGS: None. SKELETAL SYSTEM: No significant abnormality. IMPRESSION: 1. CT findings consistent with cholelithiasis with associated acute cholecystitis 2. Bilateral pleural effusions 3. Small amount of free fluid within the cul-de-sac Signer Name: Mik Jensen MD Signed: 01/09/2020 7:20 PM Workstation Name: [id number]
[2020-01-09] MEDS ORDERED: METOPROLOL TARTRATE 5 MG/5 ML INJ IV ONE (19:31)
[2020-01-09] MEDS ORDERED: PIPERACIL/TAZOBACTA 4.5/NS 100 4.5 GM/100 ML VIAL IV ONE (19:40)
[2020-01-09] MEDS ORDERED: dilTIAZem 25 MG/5 ML INJ IV ONE (19:57)
[2020-01-09] MEDS ORDERED: dilTIAZem 50 MG/10 ML INJ IV ONE (20:00)
--- NOTE | 2020-01-09 20:06 | Emergency Department Report ---
<ASHLYN STEIN - Last Filed: 01/09/20 21:36> ED General Adult HPI - General Chief complaint: Pain General Stated complaint: ESHOUGAUS PAIN Time Seen by Provider: 01/09/20 17:53 - Related Data Previous Rx's Medication Instructions Recorded Last Taken Type HYDROcodone/APAP 10-325 [[place] 1 each PO Q6HR PRN #20 tablet 12/16/15 Unknown Rx 10-325 mg TAB] metroNIDAZOLE [Flagyl] 500 mg PO Q12HR #14 tab 02/16/17 Unknown Rx Albuterol INH(or & Nicu Only) 2 puff IH QID PRN #1 inhalation 03/14/17 Unknown Rx [ProAir HFA Inhaler] Famotidine [Pepcid] 20 mg PO BID PRN #1 bottle 03/14/17 Unknown Rx Permethrin 5% [Acticin 5% CREAM] 1 applicatio TP ONCE #1 tube 03/14/17 Unknown Rx Prednisone [predniSONE 10 mg 10 mg PO .TAPER #1 tab.ds.pk 03/14/17 Unknown Rx (6-Day Pack, 21 Tabs)] hydrOXYzine HCL [Hydroxyzine HCl] 25 mg PO BID PRN #25 tablet 03/14/17 Unknown Rx Acetaminophen/Codeine [Tylenol 1 tab PO Q6H PRN #12 tab 06/25/18 Unknown Rx /Codeine # 3 tab] Amoxicillin/K Clav Tab [Augmentin 1 tab PO Q12HR #20 tab 06/25/18 Unknown Rx 875 mg] Ibuprofen [Motrin] 600 mg PO Q8H PRN #30 tablet 06/25/18 Unknown Rx Amoxicillin 500 mg PO TID #30 capsule 11/03/18 Unknown Rx Chlorhexidine Mouthwash [Peridex] 15 ml MM BID #1 bottle 11/03/18 Unknown Rx Menthol/Camphor [[place] 1 applicatio TP QID PRN #1 tube 11/03/18 Unknown Rx Ointment] Naproxen 500 mg PO BID PRN #30 tablet 11/03/18 Unknown Rx Naproxen [Naprosyn] 500 mg PO BID #14 tablet 04/30/19 Unknown Rx Ondansetron [Zofran Odt] 4 mg PO Q8HR PRN #14 tab.rapdis 04/30/19 Unknown Rx traMADoL [Ultram] 50 mg PO Q6HR PRN #14 tablet 04/30/19 Unknown Rx Allergies Allergy/AdvReac Type Severity Reaction Status Date / Time No Known Allergies Allergy Verified 01/09/20 16:47 ED Past Medical Hx - Medications Home Medications: Home Medications Medication Instructions Recorded Confirmed Last Taken Type HYDROcodone/APAP 10-325 [[place] 1 each PO Q6HR PRN #20 tablet 12/16/15 Unknown Rx 10-325 mg TAB] metroNIDAZOLE [Flagyl] 500 mg PO Q12HR #14 tab 02/16/17 Unknown Rx Albuterol INH(or & Nicu Only) 2 puff IH QID PRN #1 inhalation 03/14/17 Unknown Rx [ProAir HFA Inhaler] Famotidine [Pepcid] 20 mg PO BID PRN #1 bottle 03/14/17 Unknown Rx Permethrin 5% [Acticin 5% CREAM] 1 applicatio TP ONCE #1 tube 03/14/17 Unknown Rx Prednisone [predniSONE 10 mg 10 mg PO .TAPER #1 tab.ds.pk 03/14/17 Unknown Rx (6-Day Pack, 21 Tabs)] hydrOXYzine HCL [Hydroxyzine HCl] 25 mg PO BID PRN #25 tablet 03/14/17 Unknown Rx Acetaminophen/Codeine [Tylenol 1 tab PO Q6H PRN #12 tab 06/25/18 Unknown Rx /Codeine # 3 tab] Amoxicillin/K Clav Tab [Augmentin 1 tab PO Q12HR #20 tab 06/25/18 Unknown Rx 875 mg] Ibuprofen [Motrin] 600 mg PO Q8H PRN #30 tablet 06/25/18 Unknown Rx Amoxicillin 500 mg PO TID #30 capsule 11/03/18 Unknown Rx Chlorhexidine Mouthwash [Peridex] 15 ml MM BID #1 bottle 11/03/18 Unknown Rx Menthol/Camphor [[place] 1 applicatio TP QID PRN #1 tube 11/03/18 Unknown Rx Ointment] Naproxen 500 mg PO BID PRN #30 tablet 11/03/18 Unknown Rx Naproxen [Naprosyn] 500 mg PO BID #14 tablet 04/30/19 Unknown Rx Ondansetron [Zofran Odt] 4 mg PO Q8HR PRN #14 tab.rapdis 04/30/19 Unknown Rx traMADoL [Ultram] 50 mg PO Q6HR PRN #14 tablet 04/30/19 Unknown Rx ED Course - Reevaluation(s) Reevaluation #1: 01/09/20 21:36 Patient presenting with acute cholecystitis, a flutter with RVR, requires admission for rate control, cardiac optimization, possible surgical intervention. Antibiotics ordered, general surgery consulted, cardiology consu lted. Given need for possible urgent/emergent surgical intervention, systemic anticoagulation will be held. Case extensively discussed with physician bilingual executive assistant of record. Agree with plan for admission to the intensive care unit. ED Medical Decision Making - Lab Data Result diagrams: 01/09/20 17:56 01/09/20 17:56 ED Disposition Clinical Impression: Epigastric abdominal pain, Flutter-fibrillation, Acute cholecystitis, Bilateral pleural effusion, Cholelithiasis, SOB (shortness of breath), Microcytic anemia Disposition: OP ADMIT IP TO THIS HOSP Condition: Serious <JULEE VANEGAS - Last Filed: 01/09/20 22:56> ED General Adult HPI - General Source: patient Mode of arrival: Ambulatory Limitations: No Limitations - History of Present Illness Initial comments: Patient is a 54-year-old female presents emergency room with complaints of epigastric abdominal pain that began 2 days ago. She states it feels like a knot. Patient states that anytime she tries to eat or drink food it regurgitates back up. She states that she is not even able to take sips of water. She denies any fever, vomiting, diarrhea, chest pain. She states that when she lays down she feels short of breath. She has a past medical history of asthma. She denies any allergies to medications. She denies any history of irregular heart rhythm or cardiac issues. Severity scale (0 -10): 0 ED Review of Systems ROS: Stated complaint: ESHOUGAUS PAIN Other details as noted in HPI Comment: All other systems reviewed and negative ED Past Medical Hx - Past Medical History Hx Arthritis: Yes (PSORIATIC ARTHRITIS) Hx Asthma: Yes Additional medical history: PSORIASIS. - Surgical History Additional Surgical History: LEFT KNEE ARTHROSCOPY - Social History Smoking Status: Never Smoker Substance Use Type: None ED Physical Exam - General Limitations: No Limitations General appearance: alert, in no apparent distress - Head Head exam: Present: atraumatic, normocephalic - Eye Eye exam: Present: normal appearance - ENT ENT exam: Present: mucous membranes moist - Respiratory Respiratory exam: Present: decreased breath sounds (decreased in the bases). Absent: respiratory distress, wheezes, rales, rhonchi, stridor, chest wall tenderness, accessory muscle use, prolonged expiratory - Cardiovascular Cardiovascular Exam: Present: tachycardia, irregular rhythm, normal heart sounds . Absent: systolic murmur, diastolic murmur, rubs, gallop - GI/Abdominal GI/Abdominal exam: Present: soft, distended, tenderness (epigastric), normal bowel sounds. Absent: guarding, rebound, rigid - Neurological Exam Neurological exam: Present: alert, oriented X3 - Psychiatric Psychiatric exam: Present: normal affect, normal mood - Skin Skin exam: Present: warm, dry ED Course Vital Signs 01/09/20 01/09/20 01/09/20 16:51 18:28 18:32 Temperature 97.6 F Pulse Rate 89 62 Respiratory 20 20 20 Rate Blood Pressure 147/112 Blood Pressure 149/103 [Left] O2 Sat by Pulse 100 100 Oximetry 01/09/20 01/09/20 01/09/20 19:04 19:16 19:30 Temperature Pulse Rate 135 H 123 H 119 H Respiratory 9 L 24 19 Rate Blood Pressure 139/90 140/96 Blood Pressure [Left] O2 Sat by Pulse 100 93 Oximetry 01/09/20 01/09/20 01/09/20 19:45 20:01 20:15 Temperature Pulse Rate 135 H 128 H 121 H Respiratory 21 16 14 Rate Blood Pressure 127/95 135/95 127/95 Blood Pressure [Left] O2 Sat by Pulse 95 97 99 Oximetry 01/09/20 01/09/20 01/09/20 20:31 20:55 22:18 Temperature Pulse Rate 138 H 98 H 110 H Respiratory 20 20 20 Rate Blood Pressure 108/90 Blood Pressure 127/86 118/81 [Left] O2 Sat by Pulse 92 100 100 Oximetry - Consultations Consultation #1: 01/09/20 20:[address] Shirley, general surgery regarding patient HPI and results, recommended admission to hospitalist service, order a HIDA scan, give patient zosyn, and will see patient in the AM 01/09/20 20:[address] Michelle, GI regarding patients regurgitation and unable to swallow liquids, he believes most likely due to her cholecystitis and does not believe patient needs emergent EGD at this time, recommended placing pt on protonix BID, he advised that if continued while she was admitted in the hospital the hospitalist could consult GI again and he would be glad to see patient at that time 01/09/20 21:[address] Garcia, finance business manager, who recommended putting patient on cardizem drip and will consult on patient in the AM, agrees with holding anticoagulation at this point in time as patient could potentially be an acute surgical case in the morning. 01/09/20 21:[address] Wild, hospitalist who will accept and resume care of patient, will evaluate pt in ED 01/09/20 21:[address] Stein, ER attending he states he will admit to ICU due to cardizem drip ED Medical Decision Making - Lab Data Result diagrams: 01/09/20 17:56 01/09/20 17:56 Lab Results 01/09/20 01/09/20 01/09/20 Range/Units 17:14 17:56 17:56 WBC 6.5 (4.5-11.0) K/mm3 RBC 4.49 (3.65-5.03) M/mm3 Hgb 9.2 L (10.1-14.3) gm/dl Hct 30.1 L (30.3-42.9) % MCV 67 L (79-97) fl MCH 21 L (28-32) pg MCHC 31 (30-34) % RDW 19.3 H (13.2-15.2) % Plt Count 374 (140-440) K/mm3 Lymph % (Auto) 23.5 (13.4-35.0) % [place] % (Auto) 8.8 H (0.0-7.3) % Eos % (Auto) 2.8 (0.0-4.3) % Baso % (Auto) 1.1 (0.0-1.8) % Lymph # 1.5 (1.2-5.4) K/mm3 [place] # 0.6 (0.0-0.8) K/mm3 Eos # 0.2 (0.0-0.4) K/mm3 Baso # 0.1 (0.0-0.1) K/mm3 Seg Neutrophils % 63.8 (40.0-70.0) % Seg Neutrophils # 4.2 (1.8-7.7) K/mm3 Sodium 137 (137-145) mmol/L Potassium 3.5 L (3.6-5.0) mmol/L Chloride 105.4 (98-107) mmol/L Carbon Dioxide 17 L (22-30) mmol/L Anion Gap 18 mmol/L BUN 15 (7-17) mg/dL Creatinine 0.7 (0.7-1.2) mg/dL Estimated GFR > 60 ml/min BUN/Creatinine Ratio 21 % Glucose 102 H (65-100) mg/dL Calcium 8.2 L (8.4-10.2) mg/dL Magnesium (1.7-2.3) mg/dL Total Bilirubin 0.20 (0.1-1.2) mg/dL AST 30 (5-40) units/L ALT 38 (7-56) units/L Alkaline Phosphatase 71 (35-129) units/L Total Creatine Kinase (30-135) units/L Troponin T (0.00-0.029) ng/mL Total Protein 6.3 (6.3-8.2) g/dL Albumin 3.5 L (3.9-5) g/dL Albumin/Globulin Ratio 1.3 % Lipase (13-60) units/L TSH (0.270-4.200) mlU/mL Urine Color Yellow (Yellow) Urine Turbidity Slightly-cloudy (Clear) Urine pH 5.0 (5.0-7.0) Ur Specific [place] 1.023 (1.003-1.030) Urine Protein 100 mg/dl (Negative) mg/dL Urine Glucose (UA) Neg (Negative) mg/dL Urine Ketones Neg (Negative) mg/dL Urine Blood Neg (Negative) Urine Nitrite Neg (Negative) Urine Bilirubin Neg (Negative) Urine Urobilinogen < 2.0 (<2.0) mg/dL Ur Leukocyte Esterase Neg (Negative) Urine WBC (Auto) 8.0 H (0.0-6.0) /HPF Urine RBC (Auto) 3.0 (0.0-6.0) /HPF U Epithel Cells (Auto) 9.0 (0-13.0) /HPF Urine Mucus Few /HPF 01/09/20 01/09/20 01/09/20 Range/Units 17:56 18:53 18:53 WBC (4.5-11.0) K/mm3 RBC (3.65-5.03) M/mm3 Hgb (10.1-14.3) gm/dl Hct (30.3-42.9) % MCV (79-97) fl MCH (28-32) pg MCHC (30-34) % RDW (13.2-15.2) % Plt Count (140-440) K/mm3 Lymph % (Auto) (13.4-35.0) % [place] % (Auto) (0.0-7.3) % Eos % (Auto) (0.0-4.3) % Baso % (Auto) (0.0-1.8) % Lymph # (1.2-5.4) K/mm3 [place] # (0.0-0.8) K/mm3 Eos # (0.0-0.4) K/mm3 Baso # (0.0-0.1) K/mm3 Seg Neutrophils % (40.0-70.0) % Seg Neutrophils # (1.8-7.7) K/mm3 Sodium (137-145) mmol/L Potassium (3.6-5.0) mmol/L Chloride (98-107) mmol/L Carbon Dioxide (22-30) mmol/L Anion Gap mmol/L BUN (7-17) mg/dL Creatinine (0.7-1.2) mg/dL Estimated GFR ml/min BUN/Creatinine Ratio % Glucose (65-100) mg/dL Calcium (8.4-10.2) mg/dL Magnesium 2.30 (1.7-2.3) mg/dL Total Bilirubin (0.1-1.2) mg/dL AST (5-40) units/L ALT (7-56) units/L Alkaline Phosphatase (35-129) units/L Total Creatine Kinase 83 (30-135) units/L Troponin T < 0.010 (0.00-0.029) ng/mL Total Protein (6.3-8.2) g/dL Albumin (3.9-5) g/dL Albumin/Globulin Ratio % Lipase 20 (13-60) units/L TSH 1.450 (0.270-4.200) mlU/mL Urine Color (Yellow) Urine Turbidity (Clear) Urine pH (5.0-7.0) Ur Specific [place] (1.003-1.030) Urine Protein (Negative) mg/dL Urine Glucose (UA) (Negative) mg/dL Urine Ketones (Negative) mg/dL Urine Blood (Negative) Urine Nitrite (Negative) Urine Bilirubin (Negative) Urine Urobilinogen (<2.0) mg/dL Ur Leukocyte Esterase (Negative) Urine WBC (Auto) (0.0-6.0) /HPF Urine RBC (Auto) (0.0-6.0) /HPF U Epithel Cells (Auto) (0-13.0) /HPF Urine Mucus /HPF Critical Care Time: Yes Critical care time in (mins) excluding proc time.: 60 Critical care attestation.: If time is entered above; I have spent that time in minutes in the direct care of this critically ill patient, excluding procedure time. ED Disposition Is pt being admited?: Yes Does the pt Need Aspirin: No Time of Disposition: 21:34
--- NOTE | 2020-01-09 21:11 | Ultrasound Report ---
ULTRASOUND ABDOMEN, LIMITED (RIGHT UPPER QUADRANT) INDICATION: cholelithiasis, cholecystitis. COMPARISON: None available. FINDINGS: Pancreas: Visualized portion shows no significant abnormality. Liver: Mild enlargement of the liver Gallbladder: Echogenic material dependent portion gallbladder noted, consistent with cholelithiasis n o convincing evidence of pericholecystic fluid. The patient was tender over the gallbladder during imaging Bile ducts: Normal. Common Bile Duct measures 7 mm. Free fluid: None. Additional Findings: Right pleural effusion is present. IMPRESSION: 1. Cholelithiasis with possible cholecystitis Signer Name: Mik Jensen MD Signed: 01/09/2020 9:07 PM Workstation Name: [id number]
[2020-01-09] MEDS ORDERED: dilTIAZem/D5W 100 MG/100 ML BAG IV SCH (22:00)
[2020-01-09] MEDS ORDERED: ALBUTEROL 2.5 MG/3 ML NEBU IH PRN (22:01)
--- NOTE | 2020-01-09 22:08 | History and Physical Report ---
<ARIELLE COLON O - Last Filed: 01/10/20 02:29> History of Present Illness Date of examination: 01/09/20 Date of admission: 01/09/20 21:35 Chief complaint: Abdominal Pain- Epigastric. Nausea and Vomiting. History of present illness: Patient is a 54-year-old female with known history of asthma presenting to the emergency room today complaining of epigastric abdominal pain which has been ongoing for about 2 days. She indicates that pain feels like a knot in the upper abdomen but denies any diarrhea but has had some nausea and vomiting. She indicates she can hardly keep food down in her stomach. She denies any fever or chills, she denies any chest pain however she indicates that she feels short of breath occasionally. There is no no relieving or exacerbating factor for abdominal pain. She denies any sick contacts and no recent travel. Evaluation in the emergency room, she was found to be in atrial fibrillation /atrial flutter with RVR. CT of the abdomen also reveals cholelithiasis, Regi cystitis and bilateral pleural effusion on the on the lungs. General surgeon was consulted and will be evaluating patient promptly. Car diologist was also consulted regarding the arrhythmia and recommendation was to start patient on Cardizem drip. Anticoagulation is to be withheld in view of possible surgical intervention in the a.m. Research Staff Member was also consulted for the epigastric discomfort and recommendation was to place patient on IV Protonix twice daily. Past History Past Medical History: other (Asthma) Past Surgical History: Other (Left knee surgery) Social history: no significant social history Family history: other (Mother had Afib.) Medications and Allergies Allergies Allergy/AdvReac Type Severity Reaction Status Date / Time No Known Allergies Allergy Verified 01/09/20 16:47 Home Medications Medication Instructions Recorded Confirmed Last Taken Type Apixaban [Eliquis] 5 mg PO BID #60 tablet 01/12/20 Unknown Rx Metoprolol [Lopressor TAB] 100 mg PO BID #60 tablet 01/12/20 Unknown Rx Pantoprazole [Protonix TAB] 40 mg PO BID #60 tablet 01/12/20 Unknown Rx Sucralfate [Carafate] 1 gm PO ACHS 30 Days oral.liqd 01/12/20 Unknown Rx Active Meds: Active Medications Diltiazem HCl (Cardizem/D5w 100mg/100ml) 100 mg in 100 mls @ 5 mls/hr IV TITR WALKER; Protocol Pantoprazole Sodium (Protonix) 40 mg IV BID WALKER Review of Systems Constitutional: no fever, no chills Cardiovascular: orthopnea, palpitations, no chest pain Respiratory: no cough, no shortness of breath Gastrointestinal: nausea, vomiting, no diarrhea Genitourinary Female: no dysuria, no hematuria Musculoskeletal: no neck pain, no low back pain Integumentary: rash, pruritis Neurological: no headaches, no change in mentation Exam - Constitutional Vitals: Temp Pulse Resp BP Pulse Ox 97.6 F 98 H 20 127/86 100 01/09/20 16:51 01/09/20 20:55 01/09/20 20:55 01/09/20 20:55 01/09/20 20:55 General appearance: Present: no acute distress, well-nourished - EENT Eyes: Present: PERRL, EOM intact ENT: hearing intact, clear oral mucosa, dentition normal - Neck Neck: Present: supple, normal ROM - Respiratory Respiratory effort: normal Respiratory: bilateral: diminished - Cardiovascular Rhythm: irregularly irregular Heart Sounds: Present: S1 & S2 - Extremities Extremities: no ischemia, No edema, Full ROM Peripheral Pulses: within normal limits - Abdominal General gastrointestinal: Present: soft, tender (epigastric), non-distended, normal bowel sounds - Integumentary Integumentary: Present: clear, warm, dry, rash (Multiple scattered psoriatric rash on upper and lower extremities), normal turgor - Musculoskeletal Musculoskeletal: strength equal bilaterally - Psychiatric Psychiatric: appropriate mood/affect, intact judgment & insight - Neurologic Neurologic: CNII-XII intact, moves all extremities Results - Labs CBC & Chem 7: 01/09/20 17:56 01/09/20 17:56 Labs: Abnormal lab results 01/09/20 01/09/20 01/09/20 Range/Units 17:14 17:56 17:56 Hgb 9.2 L (10.1-14.3) gm/dl Hct 30.1 L (30.3-42.9) % MCV 67 L (79-97) fl MCH 21 L (28-32) pg RDW 19.3 H (13.2-15.2) % [place] % (Auto) 8.8 H (0.0-7.3) % Potassium 3.5 L (3.6-5.0) mmol/L Carbon Dioxide 17 L (22-30) mmol/L Glucose 102 H (65-100) mg/dL Calcium 8.2 L (8.4-10.2) mg/dL Albumin 3.5 L (3.9-5) g/dL Urine WBC (Auto) 8.0 H (0.0-6.0) /HPF Assessment and Plan - Patient Problems (1) Flutter-fibrillation Status: Acute Plan to address problem: Patient was given a dose of Cardizem in the emergency room with significant improvement in the rate. We will initiate Cardizem drip as needed. Wellness Consultant has been consulted and will await evaluation and recommendation. Meanwhile we will schedule patient for an echocardiogram. We will also check serum TSH levels. (2) Acute cholecystitis Status: Acute Plan to address problem: Patient has been kept n.p.o. General surgery has also been consulted for evaluation and recommendation. Placed patient on IV analgesic medication as needed. She has also been placed on empiric IV antibiotics. (3) Bilateral pleural effusion Status: Acute Plan to address problem: Patient will be closely monitored. She has also been scheduled for an echocardiogram. We will keep O2 saturation greater or equal to 92%. (4) Epigastric abdominal pain Status: Acute Plan to address problem: Patient placed on proton pump inhibitor. Will await evaluation by gastroenterology. (5) Cholelithiasis Status: Acute Qualifiers: Cholelithiasis location: gallbladder Cholecystitis presence: with cholecystitis Cholecystitis acuity: acute Biliary obstruction: without biliary obstruction Qualified Code(s): K80.00 - Calculus of gallbladder with acute cholecystitis without obstruction Plan to address problem: Will await surgical evaluation. (6) Microcytic anemia Status: Acute Plan to address problem: Possibly chronic. We will monitor CBC. (7) DVT prophylaxis Status: Acute Plan to address problem: Patient placed on sequential compression device. (8) Full code status Status: Acute <THAIS COYLE - Last Filed: 01/12/20 19:58> History of Present Illness Date of admission: 01/09/20 21:35 Exam - Constitutional Vitals: Temp Pulse Resp BP Pulse Ox 97.6 F 72 18 96/60 97 01/12/20 11:15 01/12/20 11:15 01/12/20 11:15 01/12/20 11:15 01/12/20 11:15 Results - Labs CBC & Chem 7: 01/12/20 03:10 01/10/20 05:13 Labs: Abnormal lab results 01/12/20 Range/Units 03:10 Hgb 9.3 L (10.1-14.3) gm/dl Hct 30.0 L (30.3-42.9) %
[2020-01-09] MEDS: PANTOPRAZOLE 40 MG INJ IV SCH (22:12)
[2020-01-09] MEDS ORDERED: ALPRAZolam 0.25 MG TAB PO ONE (23:59)
[2020-01-10] MEDS ORDERED: ALPRAZolam 0.25 MG TAB ONE ×2 (00:02→03:55)
[2020-01-10] MEDS ORDERED: ONDANSETRON 4 MG/2 ML INJ ONE (02:54)
[2020-01-10] MEDS: dilTIAZem/D5W 100 MG/100 ML BAG IV SCH ×2 (03:01→12:39)
[2020-01-10] MEDS: ONDANSETRON 4 MG/2 ML INJ IV PRN ×2 (03:05→12:19)
[2020-01-10] MEDS ORDERED: ALPRAZolam 0.25 MG TAB PO ONE ×2 (03:50→22:30)
[2020-01-10 05:29] LABS: Basophils # (Auto) 0.1 K/mm3 (0.0-0.1); Eosinophils # (Auto) 0.2 K/mm3 (0.0-0.4); Eosinophils % (Auto) 1.9 % (0.0-4.3); Hematocrit 29.7 % (30.3-42.9); Hemoglobin 9.3 gm/dl (10.1-14.3); Lymphocytes # (Auto) 1.4 K/mm3 (1.2-5.4); Lymphocytes % (Auto) 18.1 % (13.4-35.0); Mean Corpuscular HGB Conc 31 % (30-34); Monocytes # (Auto) 0.6 K/mm3 (0.0-0.8); Monocytes % (Auto) 7.8 % (0.0-7.3); Platelet Count 365 K/mm3 (140-440); Red Blood Count 4.48 M/mm3 (3.65-5.03)
[2020-01-10 05:33] LABS: Mean Corpuscular Volume 66 fl (79-97)
[2020-01-10] MEDS: MORPHINE 2 MG/1 ML INJ IV PRN ×3 (05:35→16:01)
[2020-01-10] MEDS ORDERED: MORPHINE 2 MG/1 ML INJ ONE (05:36)
[2020-01-10 05:38] LABS: INR 1.13 (0.87-1.13)
[2020-01-10 05:39] LABS: Partial Thromboplastin Time 28.8 Sec. (24.2-36.6)
[2020-01-10 05:40] LABS: BUN/Creatinine Ratio 18; Blood Urea Nitrogen 14 mg/dL (7-17); Calcium 8.5 mg/dL (8.4-10.2); Hemolysis Index 0
--- NOTE | 2020-01-10 09:05 | Consultation ---
History of Present Illness Consult date: 01/10/20 Consult reason: atrial fibrillation History of present illness: 54-year old woman who was brought to the emergency department with epigastric pain and difficulty swallowing. On presentation, she was found to be in atrial fibrillation with a rapid ventricular rate thus this cardiac consultation. The duration of this atrial fibrillation is unknown. This was treated with intravenous diltiazem. She denies chest pain and dizziness but reports shortness of breath on exertion. TSH is 1.45. Patient denies a history of tachyarrhythmias. Patient had no prior cardiac evaluation. Past History Past Medical History: other (Asthma) Past Surgical History: Other (Left knee surgery) Social history: no significant social history Family history: other (Mother had Afib.) Medications and Allergies Allergies Allergy/AdvReac Type Severity Reaction Status Date / Time No Known Allergies Allergy Verified 01/09/20 16:47 Active Meds: Active Medications Albuterol (Proventil) 2.5 mg IH Q3HRT PRN PRN Reason: Shortness Of Breath Diltiazem HCl (Cardizem/D5w 100mg/100ml) 100 mg in 100 mls @ 5 mls/hr IV TITR WALKER; Protocol Last Titration: 01/10/20 05:36 Dose: 10 mg/hr, 10 mls/hr Documented by: Morphine Sulfate (Morphine) 2 mg IV Q4H PRN PRN Reason: Pain, Moderate (4-6) Last Admin: 01/10/20 05:35 Dose: 2 mg Documented by: Ondansetron HCl (Zofran) 4 mg IV Q8H PRN PRN Reason: Nausea And Vomiting Last Admin: 01/10/20 03:05 Dose: 4 mg Documented by: Pantoprazole Sodium (Protonix) 40 mg IV BID [facility] Last Admin: 01/09/20 22:12 Dose: 40 mg Documented by: Sodium Chloride (Sodium Chloride Flush Syringe 10 Ml) 10 ml IV BID WALKER Sodium Chloride (Sodium Chloride Flush Syringe 10 Ml) 10 ml IV PRN PRN PRN Reason: LINE FLUSH Physical Examination Vital Signs Temp Pulse Resp BP Pulse Ox 97.6 F 89 20 147/112 100 01/09/20 16:51 01/09/20 16:51 01/09/20 16:51 01/09/20 16:51 01/09/20 16:51 General appearance: no acute distress HEENT: Positive: PERRL Neck: Positive: trachea midline Cardiac: Positive: irregularly irregular Lungs: Positive: Decreased Breath Sounds Neuro: Positive: Grossly Intact Extremities: Absent: edema Results 01/10/20 05:13 01/10/20 05:13 Cardiac Enzymes 01/09/20 Range/Units 17:56 AST 30 (5-40) units/L Coagulation 01/10/20 Range/Units 05:13 PT 14.7 (12.2-14.9) Sec. INR 1.13 (0.87-1.13) APTT 28.8 (24.2-36.6) Sec. CBC 01/09/20 01/10/20 Range/Units 17:56 05:13 WBC 6.5 7.8 (4.5-11.0) K/mm3 RBC 4.49 4.48 (3.65-5.03) M/mm3 Hgb 9.2 L 9.3 L (10.1-14.3) gm/dl Hct 30.1 L 29.7 L (30.3-42.9) % Plt Count 374 365 (140-440) K/mm3 Lymph # 1.5 1.4 (1.2-5.4) K/mm3 [place] # 0.6 0.6 (0.0-0.8) K/mm3 Eos # 0.2 0.2 (0.0-0.4) K/mm3 Baso # 0.1 0.1 (0.0-0.1) K/mm3 Comprehensive Metabolic Panel 01/09/20 01/10/20 Range/Units 17:56 05:13 Sodium 137 136 L (137-145) mmol/L Potassium 3.5 L 3.7 (3.6-5.0) mmol/L Chloride 105.4 106.3 (98-107) mmol/L Carbon Dioxide 17 L 18 L (22-30) mmol/L BUN 15 14 (7-17) mg/dL Creatinine 0.7 0.8 (0.7-1.2) mg/dL Glucose 102 H 118 H (65-100) mg/dL Calcium 8.2 L 8.5 (8.4-10.2) mg/dL AST 30 (5-40) units/L ALT 38 (7-56) units/L Alkaline Phosphatase 71 (35-129) units/L Total Protein 6.3 (6.3-8.2) g/dL Albumin 3.5 L (3.9-5) g/dL Assessment and Plan Atrial fibrillation, uncertain duration on IV diltiazem Acute cholecystitis We will get an echocardiogram for LVEF assessment.
--- NOTE | 2020-01-10 10:35 | Consultation ---
History of Present Illness Consult date: 01/10/20 Requesting physician: ALAINA GARRIDO Reason for consult: other (Atrial fibrillation with RVR on critical drip requiring ICU admission) History of present illness: Patient is a 54-year-old female with known history of asthma presenting to the emergency room today complaining of epigastric abdominal pain which has been ongoing for about 2 days. She indicates that pain feels like a knot in the upper abdomen but denies any diarrhea but has had some nausea and vomiting. She indicates she can hardly keep food down in her stomach. She denies any fever or chills, she denies any chest pain however she indicates that she feels short of breath occasionally. There is no no relieving or exacerbating factor for abdom inal pain. She denies any sick contacts and no recent travel. Evaluation in the emergency room, she was found to be in atrial fibrillation /atrial flutter with RVR. CT of the abdomen also reveals cholelithiasis, Merissa cystitis and bilateral pleural effusions . She was found to be in atrial fibrillation with RVR, started on a Cardizem infusion. I have been consulted to facilitate ICU admission for critical drip monitoring. - Past Medical History Hx Arthritis: Yes (PSORIATIC ARTHRITIS) Hx Asthma: Yes Additional medical history: PSORIASIS. - Surgical History Additional Surgical History: LEFT KNEE ARTHROSCOPY - Social History Smoking Status: Used to smoker, cannot quantify Substance Use Type: None Past History Past Medical History: other (Asthma) Past Surgical History: Other (Left knee surgery) Social history: no significant social history, smoking Family history: other (Mother had Afib.) Medications and Allergies Allergies Allergy/AdvReac Type Severity Reaction Status Date / Time No Known Allergies Allergy Verified 01/09/20 16:47 Home Medications Medication Instructions Recorded Confirmed Last Taken Type Apixaban [Eliquis] 5 mg PO BID #60 tablet 01/12/20 Unknown Rx Metoprolol [Lopressor TAB] 100 mg PO BID #60 tablet 01/12/20 Unknown Rx Pantoprazole [Protonix TAB] 40 mg PO BID #60 tablet 01/12/20 Unknown Rx Sucralfate [Carafate] 1 gm PO ACHS 30 Days oral.liqd 01/12/20 Unknown Rx Active Meds: Active Medications Albuterol (Proventil) 2.5 mg IH Q3HRT PRN PRN Reason: Shortness Of Breath Diltiazem HCl (Cardizem/D5w 100mg/100ml) 100 mg in 100 mls @ 5 mls/hr IV TITR WALKER; Protocol Last Titration: 01/10/20 05:36 Dose: 10 mg/hr, 10 mls/hr Documented by: Morphine Sulfate (Morphine) 2 mg IV Q4H PRN PRN Reason: Pain, Moderate (4-6) Last Admin: 01/10/20 05:35 Dose: 2 mg Documented by: Ondansetron HCl (Zofran) 4 mg IV Q8H PRN PRN Reason: Nausea And Vomiting Last Admin: 01/10/20 03:05 Dose: 4 mg Documented by: Pantoprazole Sodium (Protonix) 40 mg IV BID WALKER Last Admin: 01/09/20 22:12 Dose: 40 mg Documented by: Sodium Chloride (Sodium Chloride Flush Syringe 10 Ml) 10 ml IV BID WALKER Sodium Chloride (Sodium Chloride Flush Syringe 10 Ml) 10 ml IV PRN PRN PRN Reason: LINE FLUSH Physical Examination Vital signs: Vital Signs Temp Pulse Resp BP Pulse Ox 97.6 F 89 20 147/112 100 01/09/20 16:51 01/09/20 16:51 01/09/20 16:51 01/09/20 16:51 01/09/20 16:51 Reviewed. General appearance: Present: no acute distress - EENT Eyes: Present: PERRL, EOM intact ENT: hearing intact, clear oral mucosa, dentition normal - Neck Neck: Present: supple, normal ROM - Respiratory Respiratory effort: normal Respiratory: bilateral: CTA - Cardiovascular Rhythm: regular Heart Sounds: Present: S1 & S2. Absent: gallop, rub - Extremities Extremities: no ischemia, No edema, Full ROM - Abdominal General gastrointestinal: soft, non-tender, non-distended, normal bowel sounds - Integumentary Integumentary: Present: clear, warm, dry - Neurologic Neurologic: CNII-XII intact, moves all extremities Results - Laboratory Findings CBC and BMP: 01/12/20 03:10 01/10/20 05:13 PT/INR, D-dimer PT 14.7 Sec. (12.2-14.9) 01/10/20 05:13 INR 1.13 (0.87-1.13) 01/10/20 05:13 Abnormal lab findings: Abnormal Labs 01/09/20 01/09/20 01/09/20 17:14 17:56 17:56 Hgb 9.2 L Hct 30.1 L MCV 67 L MCH 21 L RDW 19.3 H [place] % (Auto) 8.8 H Seg Neutrophils % Sodium Potassium 3.5 L Carbon Dioxide 17 L Glucose 102 H Calcium 8.2 L Albumin 3.5 L Urine WBC (Auto) 8.0 H 01/10/20 01/10/20 05:13 05:13 Hgb 9.3 L Hct 29.7 L MCV 66 L MCH 21 L RDW 19.0 H [place] % (Auto) 7.8 H Seg Neutrophils % 71.2 H Sodium 136 L Potassium Carbon Dioxide 18 L Glucose 118 H Calcium Albumin Urine WBC (Auto) Assessment and Plan Atrial fibrillation with RVR Epigastric abdominal pain-Cholelithisis/ Cholecystitis Acute systolic heart failure. ECHO shows EF at 20-25%. Peptic ulcer disease Asthma and history of chronic shortness of breath Sedentary lifestyle Former smoker RECOMMENDATIONS -Wean Cardizem infusion per Cardiology -Heart failure measures -Anticoagulation per Cardiology -Surgery consult noted -VTE prophylaxis- hold until Cards decides on anticoagulation, Await final Gen Surgery recommendations re operative management -Therapeutic PPI -Chronic home medications as clinically indicated -Pain management, avoid narcotics -Bronchodilators prn per protocol -Encouraged to remain quit -NPO at this time, initiation of enteric nutrition per Surgery Thank you for consult Will follow as indicated
--- NOTE | 2020-01-10 11:44 | Nuclear Medicine Report ---
NUCLEAR MEDICINE HEPATOBILIARY SCAN INDICATION / CLINICAL INFORMATION: cholethiasis with cholecystitis. TECHNIQUE: Radiotracer: Tc-99m mebrofenin (by IV): 5 mCi. Gallbladder Stimulant: None used. COMPARISON: None available. FINDINGS: HEPATIC ACTIVITY: Normal. BILIARY ACTIVITY: Normal. Common bile duct activity at 22 minutes. GALLBLADDER ACTIVITY: Normal at 45 minutes. SMALL BOWEL ACTIVITY: Normal at 29 minutes. IMPRESSION: No evidence of biliary obstruction. Signer Name: Franko Orlando MD Signed: 01/10/2020 11:39 AM Workstation Name: [id number]
[2020-01-10] MEDS: PANTOPRAZOLE 40 MG INJ IV SCH ×2 (12:29→21:50)
--- NOTE | 2020-01-10 12:57 | Consultation ---
History of Present Illness Consult date: 01/10/20 Reason for consult: abdominal pain Requesting physician: JULEE VANEGAS Chief complaint: chronic abdominal pain - History of present illness History of present illness: 54yo F with history of anxiety and multiple family tragedies presents with a 2 to 3-week history of epigastric pain that has progressively gotten worse. She reports that after the of her son about 5 months ago she began to have intermittent epigastric pain. Pain would not radiate. There were no initiating factors. She did report that it felt better if she stood up and raised her arms over her head and stretched out that area. She reports that she has had a problem with frequent choking such that she has had to have the Heimlich maneuver done multiple times. She told the ER that she was unable to eat not because it was increasing her pain but she was fearful of choking. She was able to tolerate soup yesterday without any increased pain, nausea, vomiting. Denies any fevers or chills. She is currently hungry. She has no right upper quadrant or flank pain. There is no radiation to the back. She has been having more bloating. She does have regurgitation. She believes the last period of time where she had absolutely no pain was last . Past History Past Medical History: arthritis (Psoriatic), other (asthma. psoriasis. anxiety). denies: CAD, diabetes, GERD, hypertension Past Surgical History: Other (Left knee surgery - arthroscopy x 2) Social history: no significant social history, other (used to smoke marijuana. rarely drinks alcohol) Family history: other (Mother had Afib.) Medications and Allergies Allergies Allergy/AdvReac Type Severity Reaction Status Date / Time No Known Allergies Allergy Verified 01/09/20 16:47 Home Medications Medication Instructions Recorded Confirmed Last Taken Type No Known Home Medications [No 01/10/20 01/10/20 Unknown History Reported Home Medications] Active Meds: Active Medications Albuterol (Proventil) 2.5 mg IH Q3HRT PRN PRN Reason: Shortness Of Breath Diltiazem HCl (Cardizem/D5w 100mg/100ml) 100 mg in 100 mls @ 5 mls/hr IV TITR WALKER; Protocol Last Titration: 01/10/20 05:36 Dose: 10 mg/hr, 10 mls/hr Documented by: Morphine Sulfate (Morphine) 2 mg IV Q4H PRN PRN Reason: Pain, Moderate (4-6) Last Admin: 01/10/20 12:19 Dose: 2 mg Documented by: Ondansetron HCl (Zofran) 4 mg IV Q8H PRN PRN Reason: Nausea And Vomiting Last Admin: 01/10/20 12:19 Dose: 4 mg Documented by: Pantoprazole Sodium (Protonix) 40 mg IV BID [facility] Last Admin: 01/09/20 22:12 Dose: 40 mg Documented by: Sodium Chloride (Sodium Chloride Flush Syringe 10 Ml) 10 ml IV BID [facility] Sodium Chloride (Sodium Chloride Flush Syringe 10 Ml) 10 ml IV PRN PRN PRN Reason: LINE FLUSH Review of Systems - Constitutional weakness, chronic pain, no fever, no chills - Cardiovascular rapid/irregular heart beat, no chest pain, no shortness of breath - Respiratory no cough - Gastrointestinal abdominal pain, belching, dyspepsia/bloating, no nausea, no vomiting, no hematemesis, no coffee ground emesis, no BRBPR, no melena, no hematochezia, no loss of appetite - Genitourinary Genitourinary: no flank pain - Muskuloskeletal no low back pain - Integumentary no rash, no pruritis, no wounds - Psychiatric anxiety, sleep disturbances, difficulties concentrating, sadness/tearfullness Exam Vital Signs Temp Pulse Resp BP Pulse Ox 97.6 F 89 20 147/112 100 01/09/20 16:51 01/09/20 16:51 01/09/20 16:51 01/09/20 16:51 01/09/20 16:51 - General physical appearance Positive: no distress, no pain, other (appears tired and sad) - Eyes Positive: normal occular movement. Negative: icteric - Respiratory Positive: normal expansion, normal respiratory effort, clear to auscultation - Cardiovascular Rhythm: irregularly irregular - Abdomen Abdomen: Present: soft, tender (primarily in epigastric area. minimal discomfort in RUQ. rest of abdomen is benign. No pelvic shake tenderness), bowel sounds hypoactive. Absent: distended, masses, guarding, rigid, wound, surgical scars - Integumentary no rash, no growths, no abnormal pigmentation - Neurologic Neurologic: alert and oriented to time, place and person - Psychiatric Psychiatric: appropriate mood/affect, intact judgment & insight, cooperative, depressed Results - Labs 01/10/20 05:13 01/10/20 05:13 Abnormal lab results 01/09/20 01/09/20 01/09/20 Range/Units 17:14 17:56 17:56 Hgb 9.2 L (10.1-14.3) gm/dl Hct 30.1 L (30.3-42.9) % MCV 67 L (79-97) fl MCH 21 L (28-32) pg RDW 19.3 H (13.2-15.2) % [place] % (Auto) 8.8 H (0.0-7.3) % Seg Neutrophils % (40.0-70.0) % Sodium (137-145) mmol/L Potassium 3.5 L (3.6-5.0) mmol/L Carbon Dioxide 17 L (22-30) mmol/L Glucose 102 H (65-100) mg/dL Calcium 8.2 L (8.4-10.2) mg/dL Albumin 3.5 L (3.9-5) g/dL Urine WBC (Auto) 8.0 H (0.0-6.0) /HPF 01/10/20 01/10/20 Range/Units 05:13 05:13 Hgb 9.3 L (10.1-14.3) gm/dl Hct 29.7 L (30.3-42.9) % MCV 66 L (79-97) fl MCH 21 L (28-32) pg RDW 19.0 H (13.2-15.2) % [place] % (Auto) 7.8 H (0.0-7.3) % Seg Neutrophils % 71.2 H (40.0-70.0) % Sodium 136 L (137-145) mmol/L Potassium (3.6-5.0) mmol/L Carbon Dioxide 18 L (22-30) mmol/L Glucose 118 H (65-100) mg/dL Calcium (8.4-10.2) mg/dL Albumin (3.9-5) g/dL Urine WBC (Auto) (0.0-6.0) /HPF Diabetes panel 01/09/20 01/10/20 Range/Units 17:56 05:13 Sodium 137 136 L (137-145) mmol/L Potassium 3.5 L 3.7 (3.6-5.0) mmol/L Chloride 105.4 106.3 (98-107) mmol/L Carbon Dioxide 17 L 18 L (22-30) mmol/L BUN 15 14 (7-17) mg/dL Creatinine 0.7 0.8 (0.7-1.2) mg/dL Glucose 102 H 118 H (65-100) mg/dL Calcium 8.2 L 8.5 (8.4-10.2) mg/dL AST 30 (5-40) units/L ALT 38 (7-56) units/L Alkaline Phosphatase 71 (35-129) units/L Total Protein 6.3 (6.3-8.2) g/dL Albumin 3.5 L (3.9-5) g/dL Thyroid panel 01/09/20 01/10/20 Range/Units 18:53 05:13 TSH 1.450 1.400 (0.270-4.200) mlU/mL Calcium panel 01/09/20 01/10/20 Range/Units 17:56 05:13 Calcium 8.2 L 8.5 (8.4-10.2) mg/dL Albumin 3.5 L (3.9-5) g/dL Pituitary panel 01/09/20 01/09/20 01/10/20 Range/Units 17:56 18:53 05:13 Sodium 137 136 L (137-145) mmol/L Potassium 3.5 L 3.7 (3.6-5.0) mmol/L Chloride 105.4 106.3 (98-107) mmol/L Carbon Dioxide 17 L 18 L (22-30) mmol/L BUN 15 14 (7-17) mg/dL Creatinine 0.7 0.8 (0.7-1.2) mg/dL Glucose 102 H 118 H (65-100) mg/dL Calcium 8.2 L 8.5 (8.4-10.2) mg/dL TSH 1.450 (0.270-4.200) mlU/mL 01/10/20 Range/Units 05:13 Sodium (137-145) mmol/L Potassium (3.6-5.0) mmol/L Chloride (98-107) mmol/L Carbon Dioxide (22-30) mmol/L BUN (7-17) mg/dL Creatinine (0.7-1.2) mg/dL Glucose (65-100) mg/dL Calcium (8.4-10.2) mg/dL TSH 1.400 (0.270-4.200) mlU/mL Adrenal panel 01/09/20 01/10/20 Range/Units 17:56 05:13 Sodium 137 136 L (137-145) mmol/L Potassium 3.5 L 3.7 (3.6-5.0) mmol/L Chloride 105.4 106.3 (98-107) mmol/L Carbon Dioxide 17 L 18 L (22-30) mmol/L BUN 15 14 (7-17) mg/dL Creatinine 0.7 0.8 (0.7-1.2) mg/dL Glucose 102 H 118 H (65-100) mg/dL Calcium 8.2 L 8.5 (8.4-10.2) mg/dL Total Bilirubin 0.20 (0.1-1.2) mg/dL AST 30 (5-40) units/L ALT 38 (7-56) units/L Alkaline Phosphatase 71 (35-129) units/L Total Protein 6.3 (6.3-8.2) g/dL Albumin 3.5 L (3.9-5) g/dL - Imaging CT scan - abdomen: report reviewed, image reviewed CT scan - pelvis: report reviewed, image reviewed US - abdomen: report reviewed, image reviewed Additional studies: HIDA - images and report reviewed Assessment and Plan - Patient Problems (1) Epigastric abdominal pain Current Visit: Yes Status: Acute Plan to address problem: Pt stable. Except for the CT scan, the history, exam, labs, and other imaging studies do not support the diagnosis of cholecystitis. I am more suspicious that she may have some component of peptic ulcer disease based on her history. If nothing else, we should not see the gallbladder filled normally on the HIDA scan in the setting of cholecystitis. Agree with the plan for IV Protonix. I have added oral Carafate and started her on a full liquid diet. From my perspective if she tolerates the diet, she may be discharged. I would continue the proton pump inhibitor and Carafate as an outpatient. I would have her follow-up with GI as an outpatient. I would encourage her to stay on a full liquid diet with protein supplements to make sure she optimize her nutrition until she gets resolution of her pain. No surgical intervention is recommended at this time. Discussed with Dr. Bui Please call with questions.
[2020-01-10] MEDS ORDERED: HEPARIN 10,000 UNITS/10 ML VIAL IV ONE (13:00)
[2020-01-10] MEDS: METOPROLOL SUCCINATE XL 50 MG TAB PO SCH ×2 (13:28→21:50)
[2020-01-10] MEDS: HEPARIN/ 0.45% NACL DRIP 25,000 UNIT/500 ML BAG IV SCH (14:08)
[2020-01-10 14:31] LABS: Hematocrit 31.7 % (30.3-42.9); Hemoglobin 9.7 gm/dl (10.1-14.3)
[2020-01-10 14:40] LABS: INR 1.14 (0.87-1.13)
[2020-01-10 14:41] LABS: Partial Thromboplastin Time 28.1 Sec. (24.2-36.6)
--- NOTE | 2020-01-10 17:32 | Progress Note ---
Assessment and Plan Assessment and plan: Epigastric abdominal pain Per surgery, Except for the CT scan, the history, exam, labs, and other imaging studies do not support the diagnosis of cholecystitis. Surgery is more suspicious that she may have some component of peptic ulcer disease based on her history. HIDA scan also nl, IV Protonix. Cont. Carafate and full liquid diet. If she tolerates the diet, she may be discharged. follow-up with GI as an outpatient. No surgical intervention is recommended at this time. Acute sys HF. ECHO shows EF at 20-25%. Afib with RVR. rate control and AC per Cardiology History Interval history: No new issues Hospitalist Physical - Constitutional Vitals: Temp Pulse Resp BP Pulse Ox 97.6 F 82 20 119/95 94 01/09/20 16:51 01/10/20 09:00 01/10/20 14:25 01/10/20 09:00 01/10/20 09:00 General appearance: Present: no acute distress - EENT Eyes: Present: PERRL, EOM intact ENT: hearing intact, clear oral mucosa, dentition normal - Neck Neck: Present: supple, normal ROM - Respiratory Respiratory effort: normal Respiratory: bilateral: CTA - Cardiovascular Rhythm: regular Heart Sounds: Present: S1 & S2. Absent: gallop, rub - Extremities Extremities: no ischemia, No edema, Full ROM - Abdominal General gastrointestinal: soft, non-tender, non-distended, normal bowel sounds - Integumentary Integumentary: Present: clear, warm, dry - Neurologic Neurologic: CNII-XII intact, moves all extremities Results - Labs CBC & Chem 7: 01/10/20 13:55 01/10/20 05:13 Labs: Laboratory Last Values WBC 7.8 K/mm3 (4.5-11.0) 01/10/20 05:13 RBC 4.48 M/mm3 (3.65-5.03) 01/10/20 05:13 Hgb 9.7 gm/dl (10.1-14.3) L 01/10/20 13:55 Hct 31.7 % (30.3-42.9) 01/10/20 13:55 MCV 66 fl (79-97) L 01/10/20 05:13 MCH 21 pg (28-32) L 01/10/20 05:13 MCHC 31 % (30-34) 01/10/20 05:13 RDW 19.0 % (13.2-15.2) H 01/10/20 05:13 Plt Count 348 K/mm3 (140-440) 01/10/20 13:55 Lymph % (Auto) 18.1 % (13.4-35.0) 01/10/20 05:13 [place] % (Auto) 7.8 % (0.0-7.3) H 01/10/20 05:13 Eos % (Auto) 1.9 % (0.0-4.3) 01/10/20 05:13 Baso % (Auto) 1.0 % (0.0-1.8) 01/10/20 05:13 Lymph # 1.4 K/mm3 (1.2-5.4) 01/10/20 05:13 [place] # 0.6 K/mm3 (0.0-0.8) 01/10/20 05:13 Eos # 0.2 K/mm3 (0.0-0.4) 01/10/20 05:13 Baso # 0.1 K/mm3 (0.0-0.1) 01/10/20 05:13 Seg Neutrophils % 71.2 % (40.0-70.0) H 01/10/20 05:13 Seg Neutrophils # 5.5 K/mm3 (1.8-7.7) 01/10/20 05:13 PT 14.8 Sec. (12.2-14.9) 01/10/20 13:55 INR 1.14 (0.87-1.13) H 01/10/20 13:55 APTT 28.1 Sec. (24.2-36.6) 01/10/20 13:55 Sodium 136 mmol/L (137-145) L 01/10/20 05:13 Potassium 3.7 mmol/L (3.6-5.0) 01/10/20 05:13 Chloride 106.3 mmol/L (98-107) 01/10/20 05:13 Carbon Dioxide 18 mmol/L (22-30) L 01/10/20 05:13 Anion Gap 15 mmol/L 01/10/20 05:13 BUN 14 mg/dL (7-17) 01/10/20 05:13 Creatinine 0.8 mg/dL (0.7-1.2) 01/10/20 05:13 Estimated GFR > 60 ml/min 01/10/20 05:13 BUN/Creatinine Ratio 18 % 01/10/20 05:13 Glucose 118 mg/dL (65-100) H 01/10/20 05:13 Calcium 8.5 mg/dL (8.4-10.2) 01/10/20 05:13 Magnesium 2.30 mg/dL (1.7-2.3) 01/09/20 18:53 Total Bilirubin 0.20 mg/dL (0.1-1.2) 01/09/20 17:56 AST 30 units/L (5-40) 01/09/20 17:56 ALT 38 units/L (7-56) 01/09/20 17:56 Alkaline Phosphatase 71 units/L (35-129) 01/09/20 17:56 Total Creatine Kinase 83 units/L (30-135) 01/09/20 18:53 Troponin T < 0.010 ng/mL (0.00-0.029) 01/09/20 17:56 Total Protein 6.3 g/dL (6.3-8.2) 01/09/20 17:56 Albumin 3.5 g/dL (3.9-5) L 01/09/20 17:56 Albumin/Globulin Ratio 1.3 % 01/09/20 17:56 Lipase 20 units/L (13-60) 01/09/20 17:56 TSH 1.400 mlU/mL (0.270-4.200) 01/10/20 05:13 Urine Color Yellow (Yellow) 01/09/20 17:14 Urine Turbidity Slightly-cloudy (Clear) 01/09/20 17:14 Urine pH 5.0 (5.0-7.0) 01/09/20 17:14 Ur Specific [place] 1.023 (1.003-1.030) 01/09/20 17:14 Urine Protein 100 mg/dl mg/dL (Negative) 01/09/20 17:14 Urine Glucose (UA) Neg mg/dL (Negative) 01/09/20 17:14 Urine Ketones Neg mg/dL (Negative) 01/09/20 17:14 Urine Blood Neg (Negative) 01/09/20 17:14 Urine Nitrite Neg (Negative) 01/09/20 17:14 Urine Bilirubin Neg (Negative) 01/09/20 17:14 Urine Urobilinogen < 2.0 mg/dL (<2.0) 01/09/20 17:14 Ur Leukocyte Esterase Neg (Negative) 01/09/20 17:14 Urine WBC (Auto) 8.0 /HPF (0.0-6.0) H 01/09/20 17:14 Urine RBC (Auto) 3.0 /HPF (0.0-6.0) 01/09/20 17:14 U Epithel Cells (Auto) 9.0 /HPF (0-13.0) 01/09/20 17:14 Urine Mucus Few /HPF 01/09/20 17:14 - Diagnostic Impressions Diagnostic Impressions: Echocardiogram 01/10/20 02:25 Transthoracic Echocardiogram Indication: A-fib BP: 150/113 HR: 87 Conclusions *The left ventricular chamber size is mildly dilated. *Mild concentric left ventricular hypertrophy is observed. *Global left ventricular systolic function is severely decreased. *The estimated ejection fraction is 20-25%. *The left atrium is mildly dilated. *There is moderate to severe mitral regurgitation. *There is mild tricuspid regurgitation. *There is a large pleural effusion. Findings Left Ventricle: The left ventricular chamber size is mildly dilated. Mild concentric left ventricular hypertrophy is observed. Global left ventricular systolic function is severely decreased.The LV apex is not well visualized. The estimated ejection fraction is 20-25%. Abnormal left ventricular diastolic function is observed. Left Atrium: The left atrium is mildly dilated. Right Ventricle: The right ventricular cavity size is normal. The right ventricular global systolic function is normal. Right Atrium: The right atrial cavity size is normal. Aortic Valve: The aortic valve leaflets are mildly thickened. There is trace of aortic regurgitation. Mitral Valve: Mild mitral leaflet calcification is visualized. There is moderate to severe mitral regurgitation. Tricuspid Valve: The tricuspid valve leaflets are normal. There is mild tricuspid regurgitation. The right ventricular systolic pressure is calculated at 29 mmHg. Pulmonic Valve: The pulmonic valve appears normal. There is trace pulmonic regurgitation. Pericardium: There is a large pleural effusion. Aorta: The aorta appears normal. Venous: The inferior vena cava appears normal. Measurements Chambers 2D Name Value Normal Range IVSd (2D) 1.27 cm (0.6 - 1.1) LVPWd (2D) 1.37 cm (0.6 - 1.1) LVIDd (2D) 6.17 cm (3.7 - 5.6) LVIDs (2D) 5.39 cm (2 - 3.8) LV FS (2D) 12.63 % - EF Teichholz (2D) 26.63 % - Ao root diameter (2D) 2.96 cm (2 - 3.7) Volumes/Mass Name Value Normal Range LA ESV SP 4CH (A/L) 67.46 ml - LA ESV SP 2CH (A/L) 96.4 ml - LA ESV BP (A/L) 81.72 ml - LA ESV BP (A/L) index 40.06 ml/m2 - LA ESV SP 4CH (MOD) 60.56 ml - LA ESV SP 2CH (MOD) 89.03 ml - LA ESV BP (MOD) 74.3 ml - LA ESV BP (MOD) index 36.42 ml/m2 - Diastolic/Systolic Function Name Value Normal Range MV E-wave Vmax 1.25 m/sec - MV deceleration time 173.13 msec - Aortic Valve Name Value Normal Range AV Vmax 1.28 m/sec - AV VTI 20.81 cm - AV peak gradient 6.57 mmHg - AV mean gradient 3.7 mmHg - LVOT diameter 2.07 cm - LVOT Vmax 1.03 m/sec - LVOT VTI 15.1 cm - LVOT peak gradient 4.27 mmHg - LVOT mean gradient 2.06 mmHg - SV LVOT 50.82 ml - JOE (continuity Vmax) 2.71 cm2 - JOE (continuity VTI) 2.44 cm2 - Mitral Valve Name Value Normal Range MR Vmax 4.8 m/sec - Tricuspid Valve Name Value Normal Range TR Vmax 2.53 m/sec - TR peak gradient 26 mmHg - RAP 3 mmHg - RVSP 29 mmHg - Pulmonic Valve/Qp:Qs Name Value Normal Range PV Vmax 0.94 m/sec - PV peak gradient 3.55 mmHg - GA end-diastolic Vmax 1.76 m/sec - PV acceleration time 133.21 msec - Shultz/IV: Voiding Method Toilet IV Catheter Type [Right INT / Saline Lock Forearm] Active Medications - Current Medications Current Medications: Generic Name Dose Route Start Last Admin Trade Name Freq PRN Reason Stop Dose Admin Albuterol 2.5 mg 01/09/20 22:01 Proventil IH Q3HRT PRN Shortness Of Breath Furosemide 20 mg 01/10/20 18:00 Lasix IV 0600,1800 WALKER Diltiazem HCl 100 mg in 100 mls @ 5 mls/hr 01/09/20 22:00 01/10/20 12:39 Cardizem/D5w 100mg/100ml IV 10 mg/hr TITR WALKER 10 mls/hr Administration Protocol 5 MG/HR Heparin Sodium/Sodium Chloride 25,000 unit in 500 mls @ 27 mls/hr 01/10/20 13:00 01/10/20 14:08 Heparin/ 0.45% Nacl-25,000 Unit/500 Ml IV 1,350 units/hr TITR WALKER 27 mls/hr Administration Protocol 1,350 UNITS/HR Metoprolol Succinate 50 mg 01/10/20 13:00 01/10/20 13:28 Metoprolol Xl PO 50 mg Q12HR WALKER Administration Morphine Sulfate 2 mg 01/09/20 22:01 01/10/20 16:01 Morphine IV 2 mg Q4H PRN Administration Pain, Moderate (4-6) Ondansetron HCl 4 mg 01/10/20 02:55 01/10/20 12:19 Zofran IV 4 mg Q8H PRN Administration Nausea And Vomiting Pantoprazole Sodium 40 mg 01/09/20 22:00 01/10/20 12:29 Protonix IV 40 mg BID WALKER Administration Sodium Chloride 10 ml 01/10/20 10:00 01/10/20 12:29 Sodium Chloride Flush Syringe 10 Ml IV 10 ml BID WALKER Administration Sodium Chloride 10 ml 01/09/20 22:01 Sodium Chloride Flush Syringe 10 Ml IV PRN PRN LINE FLUSH Sucralfate 1 gm 01/10/20 16:30 Carafate PO [facility]S [facility] Nutrition/Malnutrition Assess - Dietary Evaluation Nutrition/Malnutrition Findings: Nutrition Notes Start: 01/10/20 08:57 Freq: Status: Active Protocol: Document 01/10/20 08:57 LM (Rec: 01/10/20 09:00 LM [id number]) Nutrition Notes Need for Assessment generated from: MD Order,Education Initial or Follow up Brief Note Other Pertinent Diagnosis cholecystitis, microcytic anemia, SOB, asthma Current Diet NPO Labs/Tests Na 136 Pertinent Medications Reviewed Height 5 ft 7 in Weight 92.533 kg [place] Body Weight (kg) 61.36 BMI 31.9 Weight Status Obese Subjective/Other Information MD consult for diet education. Pt in ED. Nutrition Intervention Follow-Up By: 01/13/20 Additional Comments F/U for diet education
[2020-01-10] MEDS: FUROSEMIDE 20 MG/2 ML INJ IV SCH (18:21)
[2020-01-10] MEDS: SUCRALFATE 1 GM/10 ML ORAL LIQD PO SCH ×2 (18:21→21:50)
[2020-01-11] MEDS: dilTIAZem/D5W 100 MG/100 ML BAG IV SCH (01:06)
[2020-01-11] MEDS: MORPHINE 2 MG/1 ML INJ IV PRN ×2 (02:37→22:04)
[2020-01-11] MEDS: FUROSEMIDE 20 MG/2 ML INJ IV SCH ×2 (06:57→17:15)
[2020-01-11] MEDS: PANTOPRAZOLE 40 MG INJ IV SCH ×2 (09:18→21:57)
[2020-01-11] MEDS: SUCRALFATE 1 GM/10 ML ORAL LIQD PO SCH ×4 (09:18→21:56)
[2020-01-11] MEDS: METOPROLOL SUCCINATE XL 50 MG TAB PO SCH (09:18)
[2020-01-11] MEDS: HEPARIN/ 0.45% NACL DRIP 25,000 UNIT/500 ML BAG IV SCH (09:28)
--- NOTE | 2020-01-11 09:44 | Progress Note ---
Assessment and Plan Assessment and plan: Epigastric abdominal pain Per surgery, Except for the CT scan, the history, exam, labs, and other imaging studies do not support the diagnosis of cholecystitis. Surgery is more suspicious that she may have some component of peptic ulcer disease based on her history. HIDA scan also nl, IV Protonix. Cont. Carafate and full liquid diet. If she tolerates the diet, she may be discharged. follow-up with GI as an outpatient. No surgical intervention is recommended at this time. Acute sys HF. ECHO shows EF at 20-25% with moderate to severe mitral regurgitation. Continue IV diuresis per cardiology. Afib with RVR. Continue IV anticoagulation with IV heparin. Continue IV diltiazem and wean per cardiology recommendations. Continue metoprolol. Tobacco abuse. Patient will be counseled on cessation at discharge. Asthma. Compensated. History Interval history: No new issues Hospitalist Physical - Constitutional Vitals: Temp Pulse Resp BP Pulse Ox 97.4 F L 93 H 18 100/65 78 L 01/11/20 07:46 01/11/20 09:18 01/11/20 07:46 01/11/20 09:18 01/11/20 07:46 General appearance: Present: no acute distress - EENT Eyes: Present: PERRL, EOM intact ENT: hearing intact, clear oral mucosa, dentition normal - Neck Neck: Present: supple, normal ROM - Respiratory Respiratory effort: normal Respiratory: bilateral: CTA - Cardiovascular Rhythm: regular Heart Sounds: Present: S1 & S2. Absent: gallop, rub - Extremities Extremities: no ischemia, No edema, Full ROM - Abdominal General gastrointestinal: soft, non-tender, non-distended, normal bowel sounds - Integumentary Integumentary: Present: clear, warm, dry - Neurologic Neurologic: CNII-XII intact, moves all extremities Results - Labs CBC & Chem 7: 01/10/20 13:55 01/10/20 05:13 Labs: Laboratory Last Values WBC 7.8 K/mm3 (4.5-11.0) 01/10/20 05:13 RBC 4.48 M/mm3 (3.65-5.03) 01/10/20 05:13 Hgb 9.7 gm/dl (10.1-14.3) L 01/10/20 13:55 Hct 31.7 % (30.3-42.9) 01/10/20 13:55 MCV 66 fl (79-97) L 01/10/20 05:13 MCH 21 pg (28-32) L 01/10/20 05:13 MCHC 31 % (30-34) 01/10/20 05:13 RDW 19.0 % (13.2-15.2) H 01/10/20 05:13 Plt Count 348 K/mm3 (140-440) 01/10/20 13:55 Lymph % (Auto) 18.1 % (13.4-35.0) 01/10/20 05:13 Luce % (Auto) 7.8 % (0.0-7.3) H 01/10/20 05:13 Eos % (Auto) 1.9 % (0.0-4.3) 01/10/20 05:13 Baso % (Auto) 1.0 % (0.0-1.8) 01/10/20 05:13 Lymph # 1.4 K/mm3 (1.2-5.4) 01/10/20 05:13 Luce # 0.6 K/mm3 (0.0-0.8) 01/10/20 05:13 Eos # 0.2 K/mm3 (0.0-0.4) 01/10/20 05:13 Baso # 0.1 K/mm3 (0.0-0.1) 01/10/20 05:13 Seg Neutrophils % 71.2 % (40.0-70.0) H 01/10/20 05:13 Seg Neutrophils # 5.5 K/mm3 (1.8-7.7) 01/10/20 05:13 PT 14.8 Sec. (12.2-14.9) 01/10/20 13:55 INR 1.14 (0.87-1.13) H 01/10/20 13:55 APTT 28.1 Sec. (24.2-36.6) 01/10/20 13:55 Heparin Anti-Xa Level 0.39 U.I./ml (0.3-0.7) 01/11/20 04:42 Sodium 136 mmol/L (137-145) L 01/10/20 05:13 Potassium 3.7 mmol/L (3.6-5.0) 01/10/20 05:13 Chloride 106.3 mmol/L (98-107) 01/10/20 05:13 Carbon Dioxide 18 mmol/L (22-30) L 01/10/20 05:13 Anion Gap 15 mmol/L 01/10/20 05:13 BUN 14 mg/dL (7-17) 01/10/20 05:13 Creatinine 0.8 mg/dL (0.7-1.2) 01/10/20 05:13 Estimated GFR > 60 ml/min 01/10/20 05:13 BUN/Creatinine Ratio 18 % 01/10/20 05:13 Glucose 118 mg/dL (65-100) H 01/10/20 05:13 Calcium 8.5 mg/dL (8.4-10.2) 01/10/20 05:13 Magnesium 2.30 mg/dL (1.7-2.3) 01/09/20 18:53 Total Bilirubin 0.20 mg/dL (0.1-1.2) 01/09/20 17:56 AST 30 units/L (5-40) 01/09/20 17:56 ALT 38 units/L (7-56) 01/09/20 17:56 Alkaline Phosphatase 71 units/L (35-129) 01/09/20 17:56 Total Creatine Kinase 83 units/L (30-135) 01/09/20 18:53 Troponin T < 0.010 ng/mL (0.00-0.029) 01/09/20 17:56 Total Protein 6.3 g/dL (6.3-8.2) 01/09/20 17:56 Albumin 3.5 g/dL (3.9-5) L 01/09/20 17:56 Albumin/Globulin Ratio 1.3 % 01/09/20 17:56 Lipase 20 units/L (13-60) 01/09/20 17:56 TSH 1.400 mlU/mL (0.270-4.200) 01/10/20 05:13 Urine Color Yellow (Yellow) 01/09/20 17:14 Urine Turbidity Slightly-cloudy (Clear) 01/09/20 17:14 Urine pH 5.0 (5.0-7.0) 01/09/20 17:14 Ur Specific [place] 1.023 (1.003-1.030) 01/09/20 17:14 Urine Protein 100 mg/dl mg/dL (Negative) 01/09/20 17:14 Urine Glucose (UA) Neg mg/dL (Negative) 01/09/20 17:14 Urine Ketones Neg mg/dL (Negative) 01/09/20 17:14 Urine Blood Neg (Negative) 01/09/20 17:14 Urine Nitrite Neg (Negative) 01/09/20 17:14 Urine Bilirubin Neg (Negative) 01/09/20 17:14 Urine Urobilinogen < 2.0 mg/dL (<2.0) 01/09/20 17:14 Ur Leukocyte Esterase Neg (Negative) 01/09/20 17:14 Urine WBC (Auto) 8.0 /HPF (0.0-6.0) H 01/09/20 17:14 Urine RBC (Auto) 3.0 /HPF (0.0-6.0) 01/09/20 17:14 U Epithel Cells (Auto) 9.0 /HPF (0-13.0) 01/09/20 17:14 Urine Mucus Few /HPF 01/09/20 17:14 - Diagnostic Impressions Diagnostic Impressions: Echocardiogram 01/10/20 02:25 Transthoracic Echocardiogram Indication: A-fib BP: 150/113 HR: 87 Conclusions *The left ventricular chamber size is mildly dilated. *Mild concentric left ventricular hypertrophy is observed. *Global left ventricular systolic function is severely decreased. *The estimated ejection fraction is 20-25%. *The left atrium is mildly dilated. *There is moderate to severe mitral regurgitation. *There is mild tricuspid regurgitation. *There is a large pleural effusion. Findings Left Ventricle: The left ventricular chamber size is mildly dilated. Mild concentric left ventricular hypertrophy is observed. Global left ventricular systolic function is severely decreased.The LV apex is not well visualized. The estimated ejection fraction is 20-25%. Abnormal left ventricular diastolic function is observed. Left Atrium: The left atrium is mildly dilated. Right Ventricle: The right ventricular cavity size is normal. The right ventricular global systolic function is normal. Right Atrium: The right atrial cavity size is normal. Aortic Valve: The aortic valve leaflets are mildly thickened. There is trace of aortic regurgitation. Mitral Valve: Mild mitral leaflet calcification is visualized. There is moderate to severe mitral regurgitation. Tricuspid Valve: The tricuspid valve leaflets are normal. There is mild tricuspid regurgitation. The right ventricular systolic pressure is calculated at 29 mmHg. Pulmonic Valve: The pulmonic valve appears normal. There is trace pulmonic regurgitation. Pericardium: There is a large pleural effusion. Aorta: The aorta appears normal. Venous: The inferior vena cava appears normal. Measurements Chambers 2D Name Value Normal Range IVSd (2D) 1.27 cm (0.6 - 1.1) LVPWd (2D) 1.37 cm (0.6 - 1.1) LVIDd (2D) 6.17 cm (3.7 - 5.6) LVIDs (2D) 5.39 cm (2 - 3.8) LV FS (2D) 12.63 % - EF Teichholz (2D) 26.63 % - Ao root diameter (2D) 2.96 cm (2 - 3.7) Volumes/Mass Name Value Normal Range LA ESV SP 4CH (A/L) 67.46 ml - LA ESV SP 2CH (A/L) 96.4 ml - LA ESV BP (A/L) 81.72 ml - LA ESV BP (A/L) index 40.06 ml/m2 - LA ESV SP 4CH (MOD) 60.56 ml - LA ESV SP 2CH (MOD) 89.03 ml - LA ESV BP (MOD) 74.3 ml - LA ESV BP (MOD) index 36.42 ml/m2 - Diastolic/Systolic Function Name Value Normal Range MV E-wave Vmax 1.25 m/sec - MV deceleration time 173.13 msec - Aortic Valve Name Value Normal Range AV Vmax 1.28 m/sec - AV VTI 20.81 cm - AV peak gradient 6.57 mmHg - AV mean gradient 3.7 mmHg - LVOT diameter 2.07 cm - LVOT Vmax 1.03 m/sec - LVOT VTI 15.1 cm - LVOT peak gradient 4.27 mmHg - LVOT mean gradient 2.06 mmHg - SV LVOT 50.82 ml - JOE (continuity Vmax) 2.71 cm2 - JOE (continuity VTI) 2.44 cm2 - Mitral Valve Name Value Normal Range MR Vmax 4.8 m/sec - Tricuspid Valve Name Value Normal Range TR Vmax 2.53 m/sec - TR peak gradient 26 mmHg - RAP 3 mmHg - RVSP 29 mmHg - Pulmonic Valve/Qp:Qs Name Value Normal Range PV Vmax 0.94 m/sec - PV peak gradient 3.55 mmHg - ME end-diastolic Vmax 1.76 m/sec - PV acceleration time 133.21 msec - Shultz/IV: Voiding Method Toilet IV Catheter Type [Right INT / Saline Lock Forearm] Active Medications - Current Medications Current Medications: Generic Name Dose Route Start Last Admin Trade Name Freq PRN Reason Stop Dose Admin Albuterol 2.5 mg 01/09/20 22:01 Proventil IH Q3HRT PRN Shortness Of Breath Furosemide 20 mg 01/10/20 18:00 01/11/20 06:57 Lasix IV 20 mg 0600,1800 WALKER Administration Diltiazem HCl 100 mg in 100 mls @ 5 mls/hr 01/09/20 22:00 01/11/20 01:06 Cardizem/D5w 100mg/100ml IV 10 mg/hr TITR WALKER 10 mls/hr Administration Protocol 5 MG/HR Heparin Sodium/Sodium Chloride 25,000 unit in 500 mls @ 27 mls/hr 01/10/20 13:00 01/11/20 09:28 Heparin/ 0.45% Nacl-25,000 Unit/500 Ml IV 1,350 units/hr TITR WALKER 27 mls/hr Administration Protocol 1,350 UNITS/HR Metoprolol Succinate 50 mg 01/10/20 13:00 01/11/20 09:18 Metoprolol Xl PO 50 mg Q12HR WALKER Administration Morphine Sulfate 2 mg 01/09/20 22:01 01/11/20 02:37 Morphine IV 2 mg Q4H PRN Administration Pain, Moderate (4-6) Ondansetron HCl 4 mg 01/10/20 02:55 01/10/20 12:19 Zofran IV 4 mg Q8H PRN Administration Nausea And Vomiting Pantoprazole Sodium 40 mg 01/11/20 10:00 01/11/20 09:18 Protonix IV 40 mg BID WALKER Administration Sodium Chloride 10 ml 01/10/20 10:00 01/10/20 21:50 Sodium Chloride Flush Syringe 10 Ml IV Not Given BID WALKER Sodium Chloride 10 ml 01/09/20 22:01 Sodium Chloride Flush Syringe 10 Ml IV PRN PRN LINE FLUSH Sucralfate 1 gm 01/10/20 16:30 01/11/20 09:18 Carafate PO 1 gm ACHS WALKER Administration Nutrition/Malnutrition Assess - Dietary Evaluation Nutrition/Malnutrition Findings: Nutrition Notes Start: 01/10/20 08:57 Freq: Status: Active Protocol: Document 01/10/20 08:57 LM (Rec: 01/10/20 09:00 LM [id number]) Nutrition Notes Need for Assessment generated from: MD Order,Education Initial or Follow up Brief Note Other Pertinent Diagnosis cholecystitis, microcytic anemia, SOB, asthma Current Diet NPO Labs/Tests Na 136 Pertinent Medications Reviewed Height 5 ft 7 in Weight 92.533 kg Ware Body Weight (kg) 61.36 BMI 31.9 Weight Status Obese Subjective/Other Information MD consult for diet education. Pt in ED. Nutrition Intervention Follow-Up By: 01/13/20 Additional Comments F/U for diet education
--- NOTE | 2020-01-11 10:11 | Progress Note ---
Assessment and Plan - Patient Problems (1) Atrial fibrillation Current Visit: Yes Status: Acute (2) Epigastric abdominal pain Current Visit: Yes Status: Acute (3) Microcytic anemia Current Visit: Yes Status: Acute Subjective Date of service: 01/11/20 Interval history: feels better,,,breathing ok Objective Vital Signs Temp Pulse Resp BP Pulse Ox 01/11/20 09:18 93 H 100/65 01/11/20 07:46 97.4 F L 87 18 100/65 78 L 01/11/20 04:21 98.3 F 67 19 121/85 98 01/10/20 23:07 97.5 F L 84 19 125/91 99 01/10/20 22:00 76 20 01/10/20 19:10 97.4 F L 61 18 101/73 99 01/10/20 14:25 20 01/10/20 13:00 97.5 F L 63 18 128/90 84 - Physical Examination General: No Apparent Distress HEENT: Positive: PERRL Neck: Positive: trachea midline Cardiac: Positive: Irregularly Regular Lungs: Positive: Decreased Breath Sounds Neuro: Positive: Grossly Intact Abdomen: Positive: Unremarkable Extremities: Present: Other (tr. edema. SL. OVERWT). Absent: edema - Labs and Meds Coagulation 01/10/20 Range/Units 13:55 PT 14.8 (12.2-14.9) Sec. INR 1.14 H (0.87-1.13) APTT 28.1 (24.2-36.6) Sec. CBC 01/10/20 Range/Units 13:55 Hgb 9.7 L (10.1-14.3) gm/dl Hct 31.7 (30.3-42.9) % Plt Count 348 (140-440) K/mm3
--- NOTE | 2020-01-11 14:14 | Event Note ---
Date: 01/11/20 consult placed for Atrial fib with RVR Patient now rate controlled on telemetry - will see prn
[2020-01-11] MEDS: METOPROLOL TARTRATE 25 MG TAB PO SCH ×2 (17:14→22:02)
[2020-01-12 05:03] LABS: Hemoglobin 9.3 gm/dl (10.1-14.3)
[2020-01-12] MEDS: METOPROLOL TARTRATE 25 MG TAB PO SCH ×2 (05:25→13:02)
[2020-01-12] MEDS: FUROSEMIDE 20 MG/2 ML INJ IV SCH (05:25)
[2020-01-12] MEDS: HEPARIN/ 0.45% NACL DRIP 25,000 UNIT/500 ML BAG IV SCH (05:26)
[2020-01-12] MEDS: SUCRALFATE 1 GM/10 ML ORAL LIQD PO SCH ×2 (09:27→13:13)
[2020-01-12] MEDS: PANTOPRAZOLE 40 MG INJ IV SCH (09:27)
--- NOTE | 2020-01-12 09:28 | Progress Note ---
Assessment and Plan - Patient Problems (1) Atrial fibrillation Current Visit: Yes Status: Acute (2) Epigastric abdominal pain Current Visit: Yes Status: Acute (3) Microcytic anemia Current Visit: Yes Status: Acute Subjective Date of service: 01/12/20 Interval history: feels better,,,breathing ok Objective Vital Signs Temp Pulse Resp BP Pulse Ox 01/12/20 07:44 97.5 F L 70 28 H 113/81 100 01/12/20 05:25 71 88/53 01/12/20 05:21 97.4 F L 71 20 88/53 93 01/11/20 23:25 97.6 F 71 20 99/60 97 01/11/20 22:02 69 119/79 01/11/20 21:59 119/79 01/11/20 19:40 84 01/11/20 19:33 97.6 F 69 20 102/69 100 01/11/20 17:14 90 102/67 01/11/20 16:22 98.2 F 45 L 18 102/61 92 01/11/20 11:58 98.0 F 65 18 99/62 97 - Physical Examination General: No Apparent Distress HEENT: Positive: PERRL Neck: Positive: trachea midline Cardiac: Positive: Reg Rate and Rhythm Lungs: Positive: clear to auscultation Neuro: Positive: Grossly Intact Abdomen: Positive: Unremarkable Extremities: Present: Other (tr. edema. SL. OVERWT). Absent: edema - Labs and Meds CBC 01/12/20 Range/Units 03:10 Hgb 9.3 L (10.1-14.3) gm/dl Hct 30.0 L (30.3-42.9) % Plt Count 369 (140-440) K/mm3
--- NOTE | 2020-01-12 10:20 | Discharge Summary ---
Providers - Providers Date of Admission: 01/09/20 21:35 Date of discharge: 01/12/20 Attending physician: ALAINA GARRIDO 01/09/20 20:04 Consult to Physician [CONS] Stat Comment: BRIGID Amanda spoke with Dr. Shirley @ 2000 Consulting Provider: DIONI SHIRLEY Physician Instructions: Reason For Exam: cholecystitis with cholethiasis 01/09/20 21:12 Consult to Physician [CONS] Stat Comment: BRIGID Amanda spoke with Dr. Garcia @ 2099 Consulting Provider: KIRIT GARCIA Physician Instructions: Reason For Exam: new onset afib/flutter 01/09/20 22:01 Consult to Dietitian/Nutrition [CONS] Routine Physician Instructions: Reason For Exam: Reason for Consult: Diet education Consult to Physician [CONS] Routine Comment: Dr. Davis notified @ 2210 Consulting Provider: JOSE TAYLOR Physician Instructions: Reason For Exam: AFIB/AFLUTTER ON CARDIZEM DRIP. Primary care physician: [employer] Hospitalization Reason for admission: abd pain, afib rvr Condition: Serious Hospital course: 54yo F with history of anxiety and multiple family tragedies presents with a 2 to 3-week history of epigastric pain that had progressively gotten worse prior to admission. Evaluation in the emergency room, she was found to be in atrial fibrillation /atrial flutter with RVR. CT of the abdomen also revealed chol elithiasis, possible cholecystitis and bilateral pleural effusion on the on the lungs. The patient was admitted with diagnosis of abdominal pain, cholelithiasis/cholecystitis and bilateral pleural effusions. General surgeon consulted for abdominal pain and Fish Hatchery Worker was also consulted regarding the arrhythmia and recommendation was to start patient on Cardizem drip. Anticoagulation was withheld in view of possible surgical intervention in the a.m. Customer Service Voice was also consulted for the epigastric discomfort and recommendation was to place patient on IV Protonix twice daily. Surgery evaluated the patient and felt that Except for the CT scan, the history, exam, labs, and other imaging studies did not support the diagnosis of cholecystitis. Surgery was more suspicious that she may have some component of peptic ulcer disease based on her history. HIDA scan also nl. Therefore, patient was treated with Protonix and Carafate. Surgery recommended no surgical intervention at this time. Cardiology is evaluation for the A. fib include an echocardiogram which revealed EF at 20-25% with moderate to severe mitral regurgitation. Therefore, cardiology felt the patient had a diagnosis of acute systolic heart failure, new onset, and treated the patient with IV diuresis. The patient also received IV anticoagulation with heparin. IV diltiazem was later discontinued and patient had appropriate rate control with beta-janett. Patient was unable to have KRISTIE inhibitor due to low blood pressure for the heart failure. The patient will be placed on Eliquis for stroke prophylaxis. Follow-up with cardiology this week. Dedicated discharge time 35 minutes Disposition: DC-01 TO HOME OR SELFCARE Time spent for discharge: 35 - Discharge Diagnoses (1) Atrial fibrillation Status: Acute (2) Bilateral pleural effusion Status: Acute (3) Epigastric abdominal pain Status: Acute (4) Flutter-fibrillation Status: Acute (5) Acute systolic congestive heart failure Status: Acute Core Measure Documentation - Palliative Care Palliative Care/ Comfort Measures: Not Applicable - Core Measures Any of the following diagnoses?: heart failure - Heart Failure Discharge Requirements KRISTIE/ARB for LVSD if EF <40%: No Reason for no KRISTIE/ARB: Hypotension Beta janett at discharge: Yes Exam - Constitutional Vitals: Temp Pulse Resp BP Pulse Ox 97.5 F L 70 28 H 113/81 100 01/12/20 07:44 01/12/20 07:44 01/12/20 07:44 01/12/20 07:44 01/12/20 07:44 General appearance: Present: no acute distress, well-nourished - EENT Eyes: Present: PERRL ENT: hearing intact, clear oral mucosa - Neck Neck: Present: supple, normal ROM - Respiratory Respiratory effort: normal Respiratory: bilateral: CTA - Cardiovascular Heart Sounds: Present: S1 & S2. Absent: rub, click - Extremities Extremities: pulses symmetrical, No edema Peripheral Pulses: within normal limits - Abdominal General gastrointestinal: Present: soft, non-tender, non-distended, normal bowel sounds Female genitourinary: Present: normal - Integumentary Integumentary: Present: clear, warm, dry - Musculoskeletal Musculoskeletal: gait normal, strength equal bilaterally - Psychiatric Psychiatric: appropriate mood/affect, intact judgment & insight - Neurologic Neurologic: CNII-XII intact, moves all extremities Plan Activity: advance as tolerated Weight Bearing Status: Weight Bear as Tolerated Diet: low fat, low cholesterol, low salt Follow up with: PRIMARY CAREMD [Primary Care Provider] - 3-5 Days OPAL HOOKER MD [Staff Physician] - 7 Days DIONI SHIRLEY MD [Staff Physician] - 7 Days MARGARITO VEGAS MD [Staff Physician] - 7 Days Prescriptions: Sucralfate [Carafate] 1 gm PO ACHS 30 Days oral.liqd Apixaban [Eliquis] 5 mg PO BID #60 tablet Metoprolol [Lopressor TAB] 100 mg PO BID #60 tablet Pantoprazole [Protonix TAB] 40 mg PO BID #60 tablet
[2020-01-12 11:21] VITALS: BP 96/60
[2020-01-13] MEDS ORDERED: PANTOPRAZOLE 40 MG TAB PO SCH (10:00)
== END 2020-01-11 13:30 | disposition home or self-care (01) | DRG 308 ==
LOC: ED 16:46 → CC1 21:35 → 4A 01-10 11:18
PROVIDERS: ADMIT Internal Medicine Geriatric Medicine; ATTEND Hospitalist
DX: I48.91 Unspecified atrial fibrillation (principal); I50.21 Acute systolic (congestive) heart failure; K80.00 Calculus of gallbladder with acute cholecystitis without obstruction; I48.92 Unspecified atrial flutter; J45.909 Unspecified asthma, uncomplicated; M19.90 Unspecified osteoarthritis, unspecified site; F41.9 Anxiety disorder, unspecified; Z79.899 Other long term (current) drug therapy; Z79.51 Long term (current) use of inhaled steroids
CPT/HCPCS: 36415; 74177; 76705; 78226; 80048; 80053; 81001; 82550; 83690; 83735; 84443; 84484; 85014; 85018; 85025; 85049; 85520; 85610; 85730; 93005; 93010; 93306; 96374; 96375; G0378; A9537; C9113; J1644; J1940; J2270; J2405; J2543; J7030; Q9967

== ENCOUNTER 2020-02-13 07:02 | Day surgery (SDC) | payer OTHER ==
[2020-02-13 07:41] LABS: Basophils # (Auto) 0.1 K/mm3 (0.0-0.1); Eosinophils # (Auto) 0.1 K/mm3 (0.0-0.4); Eosinophils % (Auto) 1.8 % (0.0-4.3); Hemoglobin 9.1 gm/dl (10.1-14.3); Lymphocytes # (Auto) 1.6 K/mm3 (1.2-5.4); Lymphocytes % (Auto) 19.4 % (13.4-35.0); Mean Corpuscular HGB Conc 32 % (30-34); Monocytes # (Auto) 0.6 K/mm3 (0.0-0.8); Monocytes % (Auto) 7.8 % (0.0-7.3); Platelet Count 414 K/mm3 (140-440); Red Cell Distribution Width 19.1 % (13.2-15.2)
[2020-02-13 07:54] LABS: BUN/Creatinine Ratio 27; Blood Urea Nitrogen 24 mg/dL (7-17); Calcium 9.1 mg/dL (8.4-10.2); Hemolysis Index 6
[2020-02-13 07:55] LABS: Mean Corpuscular Volume 63 fl (79-97)
[2020-02-13 07:57] LABS: INR 1.08 (0.87-1.13)
[2020-02-13] MEDS ORDERED: ASPIRIN EC 325 MG TAB PO ONE (08:00)
[2020-02-13] MEDS ORDERED: SODIUM CHLORIDE 0.9% 500 ML 500 ML IV SCH (08:00)
[2020-02-13] MEDS ORDERED: fentaNYL 100 MCG/2 ML INJ ONE ×2 (09:04→10:53)
[2020-02-13] MEDS ORDERED: MIDAZOLAM 2 MG/2 ML INJ ONE ×3 (09:04→10:34)
[2020-02-13] MEDS ORDERED: VERAPAMIL 5 MG/2 ML INJ ONE (09:05)
[2020-02-13] MEDS ORDERED: LIDOCAINE (2%) 20 MG/1 ML VIAL 20 ML MDV INFILTRATI ONE (09:05)
[2020-02-13] MEDS ORDERED: HEPARIN/NS 5000 UNIT/500ML 1,000 ML IR ONE (09:05)
[2020-02-13] MEDS ORDERED: NITROGLYCERIN SYRINGE 3 ML ONE (09:05)
[2020-02-13] MEDS ORDERED: HEPARIN 10,000 UNITS/10 ML VIAL ONE (09:05)
[2020-02-13] MEDS ORDERED: MIDAZOLAM 2 MG/2 ML INJ IV NR ×2 (10:10→11:00)
[2020-02-13] MEDS ORDERED: diphenhydrAMINE 50 MG/ML VIAL ONE (10:34)
[2020-02-13] MEDS ORDERED: FUROSEMIDE 40 MG/4 ML INJ ONE (11:04)
--- NOTE | 2020-02-13 11:28 | Discharge Summary ---
Short Stay Discharge Plan Activity: advance as tolerated Weight Bearing Status: Full Weight Bearing Diet: low fat, low cholesterol, low salt Wound: keep clean and dry Special Instructions: no heavy lifting (3 days) Additional Instructions: Afterload therapy to be resumed with lisinopril 2.5mg daily. Follow up with: ALYSE ALONZO III, GERSON-COREY [Primary Care Provider] - 7 Days SERGIO LALA MD [Staff Physician] - 7 Days Prescriptions: Lisinopril [Zestril TAB] 2.5 mg PO QDAY #30 tablet
[2020-02-13] MEDS ORDERED: SODIUM CHLORIDE 0.9% 1000 ML 1,000 ML IV SCH (11:30)
--- NOTE | 2020-02-13 12:10 | Cardiac Catherization Report ---
REASON FOR PROCEDURE: The patient is a 54-year-old woman with a severe dilated cardiomyopathy and paroxysmal atrial fibrillation. She was referred for preoperative cardiac assessment in anticipation of gallbladder surgery. A cardiac catheterization was recommended for further assessment of preoperative cardiac status in the setting of a severe dilated cardiomyopathy. PROCEDURES: 1. Left heart catheterization. 2. Selective left and right coronary angiography. 3. Left ventricular angiography. 4. Sedation time, start 10:51, end 11:03. DESCRIPTION OF PROCEDURE: The patient was prepped and draped in a sterile fashion after informed consent. Right radial cath site was prepped and draped after a negative Ismael's test. The right radial artery was entered using Seldinger technique followed by placement of a 6-Faroese hydrophilic sheath. Routine radial cocktail was administered via the sheath. Left coronary angiography was performed using a #3.5 left Ale catheter. A #4 right Ale was used for right coronary angiography. A pigtail catheter was used for left ventricular angiography. The catheters were removed, sheath removed, and hemostasis achieved using a TR band. The patient was returned to the postprocedure unit in stable condition. There were no complications. FINDINGS: HEMODYNAMICS: Left ventricular end-diastolic pressure was 40, following coronary angiography. Ascending aortic pressure was 152/105. There was no significant pressure gradient on pullback across the aortic valve. CORONARY ANGIOGRAPHY: There was mild ostial narrowing of the left main coronary artery. The left anterior descending artery and its diagonal branches were free of significant disease. The circumflex artery and its obtuse marginal branches contained mild diffuse luminal irregularities. The right coronary artery was a large caliber dominant vessel that contained a 30-40% stenosis of its mid segment. The left ventricle was severely dilated. There was severe left ventricular systolic dysfunction with diffuse hypokinesis. Estimated left ventricular ejection fraction 10-15%. CONCLUSION: 1. Mild nonobstructive irregularities as noted above. 2. Severe, dilated nonischemic cardiomyopathy, left ventricular ejection fraction 10-15%. RECOMMENDATIONS: 1. Medical therapy for nonischemic cardiomyopathy. 2. Risk factor modification. JOB# [id number] CA/NTS
[2020-02-13] MEDS ORDERED: ONDANSETRON 4 MG/2 ML INJ IV ONE (14:54)
[2020-02-13 15:28] VITALS: BP 113/70
== END 2020-02-13 16:03 | disposition home or self-care (01) ==
LOC: CATHLABREC 07:02
PROVIDERS: ATTEND Internal Medicine Cardiovascular Disease
DX: I42.0 Dilated cardiomyopathy (principal); I48.0 Paroxysmal atrial fibrillation; D50.9 Iron deficiency anemia, unspecified; I11.0 Hypertensive heart disease with heart failure; J45.909 Unspecified asthma, uncomplicated; K21.9 Gastro-esophageal reflux disease without esophagitis; M19.90 Unspecified osteoarthritis, unspecified site; F41.9 Anxiety disorder, unspecified; Z98.890 Other specified postprocedural states; Z79.899 Other long term (current) drug therapy; Z87.891 Personal history of nicotine dependence; Z78.9 Other specified health status; Z83.3 Family history of diabetes mellitus; Z80.1 Family history of malignant neoplasm of trachea, bronchus and lung; Z82.49 Family history of ischemic heart disease and other diseases of the circulatory system
CPT/HCPCS: 36415; 80048; 85025; 85610; 85730; 93005; 93458; 99156; C1894; J1644; J1940; J2250; J2405; J3010; J7040; 96374; 96375; J1200; Q9967